=== PATIENT | male | born 1960 | race Caucasian/White ===

== ENCOUNTER 2018-02-17 02:33 | Inpatient (IN) ==
--- NOTE | 2018-02-17 03:18 | Emergency Department Note ---
ED Disposition Clinical Impression: Non-STEMI (non-ST elevated myocardial infarction), Renal insufficiency Congestive heart failure Qualifiers: Heart failure type: unspecified Heart failure chronicity: acute on chronic Qualified Code(s): I50.9 - Heart failure, unspecified Diabetes mellitus Qualifiers: Diabetes mellitus type: type 1 Diabetes mellitus complication status: with unspecified complications Qualified Code(s): E10.8 - Type 1 diabetes mellitus with unspecified complications Disposition: Admitted As Inpatient Condition on Discharge: Good - Critical Care Critical Care Time: Yes Attestation: On 02/17/18, the high probability of a clinically significant, sudden or life threatening deterioration of the following system(s) required my full and direct attention, intervention and personal management. The time I documented below is in addition to time spent performing reported procedures but includes the following listed in this critical care notation. Total Critical Care Time: 90 Vital system(s) involved:: Circulatory Failure My critical care processes included: Assessment & monitoring of V/S, Initial and Re-exams, Data Review/Interpretation, Coordinating Care, Medication Orders and management, Documentation Medical Decision Making - Medical Records Medical records reviewed: Yes: I reviewed the patient's medical records. - Brandyn Inquiry Pt receiving controlled substance: No Vital Signs: 02/17/18 02:35 02/17/18 03:07 Temperature 97.6 F Temperature Source Temporal Artery Scan Pulse Rate [Right Radial] 121 H 115 H Respiratory Rate 24 24 Blood Pressure [Right Arm] 161/110 171/100 Blood Pressure Mean [Right Arm] 127 123 Blood Pressure Source [Right Arm] Automatic Cuff Automatic Cuff Blood Pressure Position [Right Arm] Sitting Sitting 02 Sat by Pulse Oximetry 98 100 Oxygen Delivery Method Non-Rebreather Non-Rebreather Oxygen Flow Rate (LPM) 10 10 - Lab Data Lab results reviewed: Yes: I reviewed the patient's lab results. Lab Results 02/17/18 02:42: WBC 11.3 H, RBC 4.92, Hgb 15.2, Hct 47.1, MCV 95.8 H, MCH 30.8, MCHC 32.2, RDW 13.8, Plt Count 434 H, MPV 8.0, Neut % (Auto) 60.9, Lymph % (Auto ) 31.6, Mcdonough % (Auto) 5.4, Eos % (Auto) 1.3, Baso % (Auto) 0.8, Neut # (Auto) 6.9, Lymph # (Auto) 3.6, Mcdonough # (Auto) 0.6, Eos # (Auto) 0.1, Baso # (Auto) 0.1 02/17/18 02:42: PT 9.6, INR 0.89 L, APTT 25.5 02/17/18 02:42: Sodium 133 L, Potassium 4.5, Chloride 95 L, Carbon Dioxide 27, Anion Gap 15.5 H, BUN 20 H, Creatinine 1.35 H, Estimated Creat Clear 81, Estimated GFR 55 L, Est GFR ( Amer) 66, Glucose 536 H*, Total Creatine Kinase 51, CK-MB (CK-2) 1.3, CK-MB (CK-2) Rel Index 2.5, Troponin I 1.02 H 02/17/18 02:42: B-Natriuretic Peptide 952 H 02/17/18 02:42: Lactic Acid 3.3 H 02/17/18 02:42: Influenza Type A Ag Negative, Influenza Type B Ag Negative 02/17/18 02:42: Digoxin 0.42 L Result diagrams: 02/17/18 02:42 02/17/18 02:42 Orders (Tests/Meds): ED MEDICATIONS Discontinued Medications Generic Name Dose Route Start Last Admin Trade Name Lizzy PRN Reason Stop Dose Admin Enoxaparin Sodium 90 mg 02/17/18 04:44 02/17/18 04:57 Lovenox 100mg/Ml Syringe SQ 02/17/18 04:45 90 mg ONCE ONE Administration Furosemide 40 mg 02/17/18 02:55 02/17/18 02:59 Lasix 40mg/4ml Vial IV 02/17/18 02:56 40 mg ONCE ONE Administration Nitroglycerin 1 gm 02/17/18 03:18 02/17/18 03:48 Nitroglycerin 1 Inch Oint Udp TD 02/17/18 03:19 1 gm ONCE ONE Administration Ticagrelor 180 mg 02/17/18 04:44 02/17/18 04:55 Brilinta 90mg Tablet PO 02/17/18 04:45 180 mg ONCE ONE Administration ORDERS Category Date Time Status XR chest portable Stat Exams 02/17/18 02:36 Taken Respiratory Virus Panel, PCR [Upper Respiratory Panel, Lab 02/17/18 03:57 Ordered PCR] Stat Blood Culture Stat Micro 02/17/18 02:42 Received - Radiology Data #1 Image(s): Chest Image Reviewed: Yes I reviewed the patient's radiology image Preliminary Findings: Abnormal (chf) - ECG Data Tracing #1 I reviewed this ECG and interpreted as documented below: Arrhythmias present: sinus tach Ischemic changes: ST elevation Tracing #2 I reviewed this ECG and interpreted as documented below: Arrhythmias present: sinus tach Ischemic changes: ST elevation, non-specific ST-T wave changes (similiar to prev ) - Physician Consults Physician Consulted: toribio Reason -: Pt condition Additional Consult: amaya Reason -: Admission - DICK Score for Non-STEMI Age of patient: Less than 65 yrs Number of risk factors for CAD: Presence of 3 or more Prior coronary artery stenosis(seen in coronary angiography): Less than 50% ST-Segment deviation on ECG (more than 1 min): Absent Prior aspirin intake: ASA intake in the last 7 days Severe anginal chest pain: No or one episode in last 24 hours Elevated cardiac markers(CK-MB or troponin): Present Non-Stemi Risk Score: 3 Resp/SOB HPI - General Chief Complaint: Shortness of Breath/Dyspnea Stated Complaint: chest pain Time Seen by Provider: 02/17/18 03:17 Mode of Arrival: EMS Source of Information: Patient, Spouse, EMS, Medical Record Limitations: No Limitations Description of Symptoms (Recalled from ER Triage Doc. by RN): Pt reports about 2 hrs ago he started having trouble breathing and became very sweaty. Renee reports the pt. was put on oxygen at 10l, given 324 of aspirin, and obtained BG of 571. - History of Present Illness pt with congestion during the week and tonight with inc sob but no chest pain - pt with hx of cad with stents last yr and has diabetes MD Complaint: shortness of breath Onset (ago): hour(s) Severity: moderate Consistency/Duration: constant Known history of: congestive heart failure, diabetes, other (cad) Associated symptoms: cough, orthopnea, diaphoresis Treatment prior to arrival: none - Related Data Home oxygen amount: none Home Medications Medication Instructions Recorded Confirmed aspirin 81 mg tablet,delayed 81 mg PO QDAY 12/11/17 02/17/18 release atorvastatin 80 mg tablet 80 mg PO QDAY 12/11/17 02/17/18 bisoprolol fumarate 10 mg tablet 10 mg PO BID tab 12/11/17 02/17/18 dapagliflozin 10 mg tablet 10 mg PO QDAY 12/11/17 02/17/18 digoxin 125 mcg tablet 125 mcg PO QDAY 12/11/17 02/17/18 furosemide 40 mg tablet 40 mg PO QDAY 12/11/17 02/17/18 gabapentin 100 mg capsule 100 mg PO QHS 12/11/17 02/17/18 glimepiride 2 mg tablet 2 mg PO QAM 12/11/17 02/17/18 lisinopril 20 mg tablet 20 mg PO BID tab 12/11/17 02/17/18 metformin 1,000 mg tablet 1,000 mg PO BID 12/11/17 02/17/18 nitroglycerin 0.4 mg sublingual 0.4 mg SUBLINGUAL Q5M PRN 12/11/17 02/17/18 tablet prasugrel 10 mg tablet 10 mg PO QDAY 12/11/17 02/17/18 Allergies Allergy/AdvReac Type Severity Reaction Status Date / Time No Known Allergies Allergy Verified 02/17/18 02:35 [facility] History I have reviewed the patient's past medical history: Yes Medical History: Reports:: Diabetes Mellitus Type 2 (No insulin) - Social History Smoking Status: Former smoker Tobacco Type: cigarettes Alcohol Intake: never - Psychiatric History Expresses thoughts of harming self/others: None Suicide Plan Description: No Plan Comment: Father - pacemaker - still alive ROS Obtained: Yes All systems reviewed & no additional complaints - Constitutional Constitutional: Denies fever(s) - Eyes Eyes: Denies change in vision - ENT Ears, Nose, Mouth, and Throat: Denies sore throat - Cardiovascular Cardiovascular: Denies chest pain, Reports dyspnea - Respiratory Respiratory: Yes chest congestion, Yes cough, No coughing up blood - Gastrointestinal Gastrointestingal: Denies: abdominal pain - Genitourinary Male Genitourinary: Denies hematuria - Musculoskeletal Musculoskeletal: Denies joint pain - Integumentary/Breasts Skin/Breast: Denies rash - Neurologic Neurologic: Denies seizure-like activity Physical Exam - General General appearance: in no apparent distress - Head Head exam: normocephalic - Eye Eye exam: Present: PERRL, EOMI - ENT ENT exam: Present: mucous membranes dry - Neck Neck exam: Present: trachea midline - Respiratory Respiratory exam: Absent: respiratory distress (bilat rales ) - Cardiovascular Cardiovascular exam: Present: regular rate, systolic murmur, +S3, +S4 - Abdominal Exam Abdominal exam: Present: soft - Extremities Exam Extremities exam: Absent: calf tenderness - Neurological Exam Neurological exam: Present: alert, oriented X3, CN II-XII intact - Skin Skin exam: Absent: rash
[2018-02-17 03:22] LABS: Basophils # 0.1 K/mm3 (0-0.2); Basophils % 0.8 % (0.1-2.0); Eosinophils # 0.1 K/mm3 (0.0-0.4); Eosinophils % 1.3 % (0.1-12.0); Hematocrit 47.1 % (42.0-52.0); Hemoglobin 15.2 g/dL (14.1-18.0); Lymphocytes # 3.6 K/mm3 (0.7-4.5); Lymphocytes % 31.6 K/mm3 (10-50); Mean Corpuscular HGB Conc 32.2 g/dL (31.8-35.4); Mean Corpuscular Hemoglobin 30.8 pg (27.0-31.2); Mean Corpuscular Volume 95.8 fl (80-94); Monocytes # 0.6 K/mm3 (0.1-1.0); Monocytes % 5.4 % (1.7-9.3); Neutrophils # 6.9 K/mm3 (1.8-7.8); Neutrophils % 60.9 % (37.0-80.0); Platelet Count 434 K/mm3 (142-424); Red Blood Count 4.92 M/mm3 (4.60-6.20); Red Cell Distribution Width 13.8 % (11.5-17.5); White Blood Count 11.3 K/mm3 (4.8-10.8)
[2018-02-17 03:25] LABS: Activated Partial Thrombo Time 25.5 seconds (23.6-34.0); INR 0.89 (0.9-1.1); Prothrombin Time 9.6 seconds (9.4-11.8)
[2018-02-17 04:04] LABS: Anion Gap 15.5 mEq/L (5-15); Potassium 4.5 mmoL/L (3.5-5.1)
[2018-02-17 05:45] LABS: Coronavirus 229E Not Detected (NotDetected); Coronavirus NL63 Not Detected (NotDetected); Coronavirus OC43 Not Detected (NotDetected); Coronovirus HKU1,PCR Not Detected (NotDetected)
[2018-02-17 07:06] LABS: Basophils # 0.1 K/mm3 (0-0.2); Basophils % 0.4 % (0.1-2.0); Hematocrit 42.9 % (42.0-52.0); Mean Platelet Volume 7.7 fl (7.4-10.4); Red Cell Distribution Width 13.8 % (11.5-17.5)
[2018-02-17 07:12] LABS: Anion Gap 13.5 mEq/L (5-15); Potassium 4.5 mmoL/L (3.5-5.1)
[2018-02-17 07:33] LABS: Eosinophils % 0.1 % (0.1-12.0); Lymphocytes # 1.6 K/mm3 (0.7-4.5); Lymphocytes % 10.1 K/mm3 (10-50); Mean Corpuscular HGB Conc 31.6 g/dL (31.8-35.4); Monocytes # 0.7 K/mm3 (0.1-1.0); Monocytes % 4.1 % (1.7-9.3); Neutrophils # 13.9 K/mm3 (1.8-7.8); Neutrophils % 85.3 % (37.0-80.0); Platelet Count 363 K/mm3 (142-424); Red Blood Count 4.52 M/mm3 (4.60-6.20); White Blood Count 16.3 K/mm3 (4.8-10.8)
[2018-02-17 07:34] LABS: Hemoglobin 13.6 g/dL (14.1-18.0)
--- NOTE | 2018-02-17 08:51 | History & Physical Report ---
*Admission Date: 02/17/18 *Chief complaint: Shortness of air *History of present illness: 57-year-old white male with known cardiovascular disease, status post stenting 1 year ago, severe diabetes which is poorly controlled, hyperlipidemia, who after returning from a vacation in [place] last night at his home awoke around 1030 with sudden shortness of air and coughing. He was able to cough up some mucus but this did not help his shortness of air which progressively became worse. He came to the emergency department where initial enzyme testing showed troponin elevation, and exam was consistent with some fluid overload and also noted to have high BNP levels. He did not respond significantly nitroglycerin, but after Lasix and oxygen were given felt much better. Had a good diuresis and his shortness of air essentially resolved. However, second set of troponin enzymes were also positive and patient was admitted for non- STEMI. [facility] History I have reviewed the patient's past medical history: Yes Medical History: Reports:: Congestive Heart Failure, Diabetes Mellitus Type 2 ( No insulin), Hyperlipidemia, Hypertension, Myocardial Infarction Denies:: Cancer, Diabetes Mellitus Type 1, MRSA Other Surgeries: Yes: Cardiac Catheterization, Coronary Stent, Hernia Repair Amputation: No - *Social History Educational Level: Completed High School Smoking Status: Former smoker Tobacco Type: cigarettes Alcohol Intake: never Occupational Status: employed Housing: house Household Members: spouse - Psychiatric History Expresses thoughts of harming self/others: None Suicide Plan Description: No Plan *Family Hx:: Coronary Artery Disease, Diabetes, Heart Attack, Hyperlipidemia, Hypertension Review of Systems - Review of Systems Review of systems:: unable to obtain, other, pertinent systems reviewed and negative unless documented below - *Neurologic Denies seizure-like activity Meds Home Medications Medication Instructions Recorded Confirmed Type aspirin 81 mg tablet,delayed 81 mg PO QDAY 12/11/17 02/17/18 History release atorvastatin 80 mg tablet 80 mg PO QDAY 12/11/17 02/17/18 History bisoprolol fumarate 10 mg tablet 10 mg PO BID tab 12/11/17 02/17/18 History dapagliflozin 10 mg tablet 10 mg PO QDAY 12/11/17 02/17/18 History digoxin 125 mcg tablet 125 mcg PO QDAY 12/11/17 02/17/18 History furosemide 40 mg tablet 40 mg PO QDAY 12/11/17 02/17/18 History gabapentin 100 mg capsule 100 mg PO QHS 12/11/17 02/17/18 History glimepiride 2 mg tablet 2 mg PO QAM 12/11/17 02/17/18 History lisinopril 20 mg tablet 20 mg PO BID tab 12/11/17 02/17/18 History metformin 1,000 mg tablet 1,000 mg PO BID 12/11/17 02/17/18 History nitroglycerin 0.4 mg sublingual 0.4 mg SUBLINGUAL Q5M PRN 12/11/17 02/17/18 History tablet prasugrel 10 mg tablet 10 mg PO QDAY 12/11/17 02/17/18 History Allergies Allergy/AdvReac Type Severity Reaction Status Date / Time No Known Allergies Allergy Verified 02/17/18 02:35 Exam Vital signs and Labs for Last 24 Hours: Temp Pulse Resp BP Pulse Ox 97.9 F 84 16 121/61 96 02/17/18 07:54 02/17/18 07:54 02/17/18 07:54 02/17/18 07:54 02/17/18 07:54 Laboratory Results - last 24 hr 02/17/18 06:14: POC Glucose 580 H* 02/17/18 06:40: WBC 16.3 H D, RBC 4.52 L, Hgb 13.6 L D, Hct 42.9, MCV 95.0 H, MCH 30.0, MCHC 31.6 L, RDW 13.8, Plt Count 363, MPV 7.7, Neut % (Auto) 85.3 H, Lymph % (Auto) 10.1, Saline % (Auto) 4.1, Eos % (Auto) 0.1, Baso % (Auto) 0.4, Neut # (Auto) 13.9 H, Lymph # (Auto) 1.6, Saline # (Auto) 0.7, Eos # (Auto) 0.0, Baso # (Auto) 0.1 02/17/18 06:40: Sodium 131 L, Potassium 4.5, Chloride 96 L, Carbon Dioxide 26, Anion Gap 13.5, BUN 23 H, Creatinine 1.29, Estimated Creat Clear 73, Estimated GFR 58 L, Est GFR ( Amer) 70, Glucose 594 H* 02/17/18 06:40: Random Glucose 594 H* 04/07/18 06:42: Lactic Acid Fup @ 4Hr 1.6 I & O for Last 24 hours: Intake & Output 02/14/18 02/15/18 02/16/18 02/17/18 11:59 11:59 11:59 11:59 Weight 177 lb Narrative: Patient is awake, pleasant. Oriented 3. Long, joy monteiro as previously noted. Heart rate regular, lungs have crackles in both bases. Abdomen soft and nontender, no perfusion deficits, no edema peripherally. H&P: Result - Labs Labs: Short CBC 02/17/18 Range/Units 06:40 WBC 16.3 H D (4.8-10.8) K/mm3 Hgb 13.6 L D (14.1-18.0) g/dL Hct 42.9 (42.0-52.0) % Plt Count 363 (142-424) K/mm3 BMP 02/17/18 06:40 Sodium 131 L Potassium 4.5 Chloride 96 L Carbon Dioxide 26 BUN 23 H Creatinine 1.29 Glucose 594 H* Assessment and Plan (1) Congestive heart failure Current visit: Yes Status: Acute Qualifiers: Heart failure type: unspecified Heart failure chronicity: acute on chronic Qualified Code(s): I50.9 - Heart failure, unspecified Category: Medical Code(s): I50.9 - Heart failure, unspecified (2) Non-STEMI (non-ST elevated myocardial infarction) Current visit: Yes Status: Acute Category: Medical Code(s): I21.4 - Non- ST elevation (NSTEMI) myocardial infarction (3) Renal insufficiency Current visit: Yes Status: Acute Category: Medical Code(s): N28.9 - Disorder of kidney and ureter, unspecified (4) Diabetes mellitus Current visit: Yes Status: Chronic Qualifiers: Diabetes mellitus type: type 1 Diabetes mellitus complication status: with unspecified complications Qualified Code(s): E10.8 - Type 1 diabetes mellitus with unspecified complications Category: Medical Code(s): E11.9 - Type 2 diabetes mellitus without complications (5) Cardiomyopathy Current visit: No Status: Chronic Qualifiers: Category: Medical Code(s): I42.9 - Cardiomyopathy, unspecified (6) Coronary arteriosclerosis Current visit: No Status: Chronic Category: Medical Code(s): I25.10 - Atherosclerotic heart disease of [place] coronary artery without angina pectoris (7) Hyperlipidemia Current visit: No Status: Chronic Qualifiers: Category: Medical Code(s): E78.5 - Hyperlipidemia, unspecified (8) Hypertensive heart disease Current visit: No Status: Chronic Category: Medical Code(s): I11.9 - Hypertensive heart disease without heart failure - Assessment and plan all Dx Assessment and Plan for all problems:: Agree with admission, IV Lasix continues. Sliding scale insulin. Medical management for now. Patient already feels better with diuresis. Echocardiogram, cardiology consultation.
[2018-02-17 10:02] LABS: Lymphocytes % 13 % (10-50); Neutrophils % 85 % (42-76); Total Cells Counted 100
[2018-02-17 10:03] LABS: RBC Morphology Normal
--- NOTE | 2018-02-17 14:19 | Pharmacy Consult Notes ---
[facility] Pharmacy VTE Monitoring - Patient Demographics Admission date: 02/17/18 Report Date: 02/17/18 Time: 14:19 Allergies/Adverse Reactions: Patient Allergies No Known Allergies Allergy (Verified 02/17/18 02:35) Height: 1.7 m Weight: 80.286 kg Patient Problems: Current Active Problems Non-STEMI (non-ST elevated myocardial infarction) (Acute) Congestive heart failure (Acute) Renal insufficiency (Acute) Diabetes mellitus (Chronic) - VTE Risk Labs: VTE Related Lab Results Hgb 13.6 g/dL (14.1-18.0) L D 02/17/18 06:40 Hct 42.9 % (42.0-52.0) 02/17/18 06:40 Plt Count 363 K/mm3 (142-424) 02/17/18 06:40 PT 9.6 seconds (9.4-11.8) 02/17/18 02:42 INR 0.89 (0.9-1.1) L 02/17/18 02:42 APTT 25.5 seconds (23.6-34.0) 02/17/18 02:42 BUN 23 mg/dL (7-18) H 02/17/18 06:40 Creatinine 1.29 mg/dL (0.70-1.30) 02/17/18 06:40 Estimated Creat Clear 73 mL/min (0-300) 02/17/18 06:40 VTE Score: 6 VTE Risk Level: Moderate Risk - Prophylaxis VTE Prophylaxis Ordered?: Yes Types of VTE Prophylaxis: TEDS Knee High Location of Applied Device: Bilateral Lower Extremeties
--- NOTE | 2018-02-18 09:09 | Discharge Summary ---
General - General Admission date: 02/17/18 Discharge date: 02/18/18 HPI HPI: 57-year-old white male with known cardiovascular disease, status post stenting 1 year ago, severe diabetes which is poorly controlled, hyperlipidemia, who after returning from a vacation in [place] last night at his home awoke around 1030 with sudden shortness of air and coughing. He was able to cough up some mucus but this did not help his shortness of air which progressively became worse. He came to the emergency department where initial enzyme testing showed troponin elevation, and exam was consistent with some fluid overload and also noted to have high BNP levels. He did not respond significantly nitroglycerin, but after Lasix and oxygen were given felt much better. Had a good diuresis and his shortness of air essentially resolved. However, second set of troponin enzymes were also positive and patient was admitted for non- STEMI. Hospital Course Hospital Course: Patient was admitted, troponin elevation was considerable and increased to 20. Cardiology evaluated patient and took him to the [facility] yesterday, results are noted in this document below. ANGIOGRAPHIC RESULTS: 1. The left main artery has an ostial 20% stenosis which appears to be more of an anatomical bend 2. The left anterior descending artery initially is ostially occluded however after the procedure the LAD is widely patent with DICK-3 flow. The LAD wraps the apex and is a large vessel. In the mid LAD are 30% stenoses. The first diagonal artery has a distal 40% stenosis. 3. The circumflex artery is a nondominant vessel which has proximal 30% mid vessel 30 and 40% stenoses in the large obtuse marginal artery. 4. The right coronary artery is a dominant vessel and has 30% mid and distal stenoses 5. The GUERRIER ventriculogram reveals severe left ventricular dilatation with akinetic anterior apical wall estimated ejection fraction 15-20% 6. The left ventricular end-diastolic pressure 20 mmHg IMPRESSION: 1. Acute anterior myocardial infarction with acute systolic congestive heart failure 2. Successful stenting of the ostial proximal mid LAD with successful bifurcation into a large first diagonal artery. 100% occlusion reduced to 0% with 3 drug-eluting stents 3. Severe LV dysfunction 4. Normal LVEDP given degree of LV dysfunction PLAN: 1. Standard therapy for acute systolic heart failure including lillian inhibitors. Use carvedilol judiciously and uptitrate slowly. Patient should be maximized on lisinopril prior to advancing carvedilol 2. LDL less than 55 to be achieved with high intensity stent 3. Lifevest patient is willing to wear 4. Cardiac rehabilitation 5. Avoidance of tobacco products 6. It is important we once again stress medical compliance with patient who unfortunately has a long history of medicinal noncompliance Patient did well and felt much better. This morning the patient is feeling good , no chest pain or shortness of air. Oxygenation is excellent on room air. Patient has developed a mild cyst in his perineum with some redness and infectious type symptoms otherwise. I had a long discussion with patient about ongoing therapy. Patient is completely unwilling to wear a LifeVest. He is unconvinced of its efficacy and is also deeply troubled about the cost. He and his both say that it will not wear it or take at home if prescribed. He does state that he has been compliant with all of his medications, and that his glucose control has improved with the recent injectable GLP-1 antagonist. Will be to discharge home today. He has his antiplatelet agent, aspirin, lisinopril and beta-blockers at home. He also has statin at home. We will do antibiotics for the infected cyst as noted. Close follow-up in my office on Monday. Objective Vital signs: Temp Pulse Resp BP Pulse Ox 97.9 F 78 20 124/71 100 02/18/18 04:00 02/18/18 06:00 02/18/18 04:00 02/18/18 06:00 02/18/18 06:00 Narrative: Patient is alert, awake, oriented 3, comfortable without chest pain, oxygen 95 % on room air. Lungs are clear, heart rate regular. Abdomen soft. Red cyst with minimal drainage noted around the perineum. No evidence of streaking. No edema noted. Results Labs on day of discharge: Labs from last 24 hours 02/18/18 02/17/18 02/17/18 06:00 20:13 12:46 Total Counted Neutrophils % (Manual) Lymphocytes % (Manual) Atypical Lymphs % Platelet Estimate RBC Morphology Activated Clotting Time > 400 H* POC Glucose 164 H 226 H Troponin I 02/17/18 02/17/18 10:07 06:40 Total Counted 100 Neutrophils % (Manual) 85 H Lymphocytes % (Manual) 13 Atypical Lymphs % 2.0 Platelet Estimate Normal RBC Morphology Normal Activated Clotting Time POC Glucose Troponin I 20.96 H DS: Diagnosis - Discharge Diagnosis (1) Congestive heart failure Status: Acute (2) Non-STEMI (non-ST elevated myocardial infarction) Status: Acute (3) Renal insufficiency Status: Acute (4) Diabetes mellitus Status: Chronic (5) Cardiomyopathy Status: Chronic (6) Coronary arteriosclerosis Status: Chronic (7) Hyperlipidemia Status: Chronic (8) Hypertensive heart disease Status: Chronic (9) Cellulitis and abscess of buttock Status: Acute Discharge Plan - Patient Discharge Instructions ACTIVITY: Continue current activity, No heavy lifting DIET: continue same diet, diabetic diet - Follow up Plan Follow up with: Basil Sebastian MD [Staff Physician] - 02/23/18 9:00 am Disposition: Home, Self-Residential Medications: Home Medications Medication Instructions Recorded Confirmed Type aspirin 81 mg tablet,delayed 81 mg PO DAILY 12/11/17 02/17/18 History release atorvastatin 80 mg tablet 80 mg PO HS 12/11/17 02/17/18 History bisoprolol fumarate 10 mg tablet 10 mg PO BID tab 12/11/17 02/17/18 History dapagliflozin 10 mg tablet 10 mg PO DAILY 12/11/17 02/17/18 History digoxin 125 mcg tablet 125 mcg PO DAILY 12/11/17 02/17/18 History furosemide 40 mg tablet 40 mg PO DAILY 12/11/17 02/17/18 History gabapentin 100 mg capsule 100 mg PO QHS 12/11/17 02/17/18 History glimepiride 2 mg tablet 2 mg PO DAILY 12/11/17 02/17/18 History lisinopril 20 mg tablet 20 mg PO BID tab 12/11/17 02/17/18 History metformin 1,000 mg tablet 1,000 mg PO BID 12/11/17 02/17/18 History nitroglycerin 0.4 mg sublingual 0.4 mg SUBLINGUAL Q5M PRN 12/11/17 02/17/18 History tablet prasugrel 10 mg tablet 10 mg PO DAILY 12/11/17 02/17/18 History Prescriptions/Medication Reconciliation: New Cefdinir [Omnicef 300mg Capsule] 300 mg PO BID #20 cap Liraglutide [Victoza 2-Pk] 1.2 mg SQ DAILY #1 pen.injctr Mupirocin [Bactroban 2% Ointment 22gm tube] 1 applicatio TP TID #2 tube Continue aspirin 81 mg tablet,delayed release 81 mg PO DAILY atorvastatin 80 mg tablet 80 mg PO HS bisoprolol fumarate 10 mg tablet 10 mg PO BID tab digoxin 125 mcg tablet 125 mcg PO DAILY prasugrel 10 mg tablet 10 mg PO DAILY furosemide 40 mg tablet 40 mg PO DAILY gabapentin 100 mg capsule 100 mg PO QHS glimepiride 2 mg tablet 2 mg PO DAILY lisinopril 20 mg tablet 20 mg PO BID tab metformin 1,000 mg tablet 1,000 mg PO BID nitroglycerin 0.4 mg sublingual tablet 0.4 mg SUBLINGUAL Q5M PRN PRN Reason: Chest Pain dapagliflozin 10 mg tablet 10 mg PO DAILY
[2018-02-18 10:01] VITALS: BP 107/56
== END 2018-02-18 09:55 | disposition home or self-care (01) ==
LOC: ER 02:33 → 2ND 05:01
PROVIDERS: ADMIT Internal Medicine Adolescent Medicine; ATTEND Internal Medicine Adolescent Medicine

== ENCOUNTER → 2018-02-21 10:53 | Outpatient (CLI) | payer BC, SELFPAY ==
--- NOTE | 2018-02-21 10:55 | CA_ITS ---
PROCEDURE: Limited echocardiogram was performed. INDICATIONS FOR THE TEST: Chest pain COPD Heart Murmur Tobacco Smoking Palpitations Fatigue Syncope Edema Hypertension+Diabetes Mellitus+ Rheumatic Fever SOB+AGUERO Obesity Hyperlipidemia+ Family History HD Additional History STENTS 02/17/18 PATIENT INFORMATION HEIGHT: 67 WEIGHT:177 GENDER: Male B/P:121/61 2-D/M-MODE INTERPRETATION: 2-D MEASUREMENTS OBSERVED VALUES IN CMS Right Ventricular Dimension (RVDd) 2.9 Interventricular Septum (Thickness)(IVsd) 1.2 Left Ventricular Internal Dimensions(LVIDd) 6.1 Left Ventricular Posterior Wall (Thickness)(LVPWd) 3.1 Aortic Root Aortic Cusp Separation Left Atrial Dimensions (LAD) 2D 1. Left atrium is mildly enlarged, left ventricle is mildly dilated, there is mild concentric left ventricular hypertrophy, there is severely reduced left ventricular systolic function, visually estimated ejection fraction approximately 25%, there is marked hypokinesis involving mid to distal septum, anterior, anteroapical, apex and inferoapical wall. 2. The right atrium and right ventricle are normal size and contractility. 3. The aortic valve is minimally thickened and fibrosed. 4. The mitral and tricuspid valve is structurally normal. 5. The pulmonic valve is poorly visualized. 6. No significant pericardial effusion noted. DOPPLER INTERROGATION: No Doppler performed. CONCLUSION: Line 1. Mildly enlarged left atrium, mildly dilated left ventricle, mild concentric left ventricular hypertrophy, visually estimated ejection fraction of 25% with multiple segmental wall motion abnormality described above. 2. No significant pericardial effusion noted.
== END ==
PROVIDERS: PCP Internal Medicine Adolescent Medicine; Visit Provider Physician Assistant
DX: R94.31 Abnormal electrocardiogram [ECG] [EKG] (principal); I25.10 Atherosclerotic heart disease of native coronary artery without angina pectoris; I42.9 Cardiomyopathy, unspecified; I11.0 Hypertensive heart disease with heart failure; E78.4 Other hyperlipidemia; E10.8 Type 1 diabetes mellitus with unspecified complications
CPT/HCPCS: 93308

== ENCOUNTER 2018-03-01 12:32 | Outpatient (RCR) | payer BC, SELFPAY | END 2018-03-01 12:33 | disposition home or self-care (01) | LOC: PT 12:32 | PROVIDERS: PCP Internal Medicine Adolescent Medicine; Visit Provider Internal Medicine | DX: Z95.5 Presence of coronary angioplasty implant and graft (principal) | CPT/HCPCS: 93798 ==

== ENCOUNTER → 2018-04-06 13:13 | Outpatient (CLI) | payer BC, SELFPAY ==
--- NOTE | 2018-04-06 13:14 | US_ITS ---
US Arterial Ankle Brachial index.. Bilateral Lower leg physiologic arterial evaluation HISTORY: ITS.REASON: Claudication both legs. Rest pain both legs.. Diabetic with peripheral vascular disease. Previous angioplasty. Previous smoker. CAD hyperlipidemia.. Prior [place]. Hypertension 6 cardiac stents. TECHNIQUE: Segmental pressures obtained of both right and left leg. These are compared to brachial blood pressure to yield index at each level sampled including summary NNEKA. The data sheets from the procedure are available in PACS FINDINGS Rest study only performed today No prior studies available for comparison. Blood pressures reported are in millimeters mercury. ======== RIGHT LEG NNEKA = 0.2...Reflecting Very Severe Flow Resection. (Technologist noted Patient appt with Dr. De La Cruz april 10) RIGHT LEG TBI = Unattainable Brachial BP: 112 Thigh BP: BP 38 with index 0.34 Calf BP: BP 36 with index 0.32 Ankle PT: BP 27 with index 0.24 Ankle DP : BP 32 with index 0.29 Digit = unobtainable BP 0 index 0 Right leg Waveforms Diminished. Right DP Pulses Very Diminished ========= LEFT LEG NNEKA = 0.8. LEFT LEG TBI = 0.6 Brachial BPD: 108 Thigh BP: BP 107 with index 0.96 Calf BP: BP 103 with index 0.92 Ankle PT:BP 93 with index 0.83 Ankle DP: BP 85 with index 0.76 Digit = BP 65 with index 0.58 Left leg pulses and waveforms normal IMPRESSION:...... 1. RIGHT LEG NNEKA = 0.2 RIGHT LEG TBI = Unattainable Markedly diminished waveforms right leg. Right DP pulse very diminished 2. LEFT LEG NNEKA = 0.8 LEFT LEG TBI = 0.6 Waveforms and pulses normal at left leg
== END ==
PROVIDERS: PCP Internal Medicine Adolescent Medicine; Visit Provider Internal Medicine
DX: I70.213 Atherosclerosis of native arteries of extremities with intermittent claudication, bilateral legs (principal); I73.9 Peripheral vascular disease, unspecified
CPT/HCPCS: 93922

== ENCOUNTER → 2018-11-22 12:49 | Outpatient (CLI) | payer BC, SELFPAY ==
--- NOTE | 2018-11-22 12:52 | MR_ITS ---
MR head/brain wo con HISTORY: Headache, and balance, blurred vision ITS.REASON: BALANCE PROBLEMS, NEUROPATHY ORDERING PHYSICIAN: Basil Sebastian MD PATIENT AGE: 58 years Comparison: None TECHNIQUE: Standard multiplanar multiecho sequences are performed without contrast. FINDINGS: No midline shift, mass effect, intracranial hemorrhage, or hydrocephalus is evident. There is mild generalized atrophy with a few scattered periventricular and subcortical T2 white matter hyperintensities consistent with ischemic gliotic change from microvascular disease. Old small lacunar infarction of the right putamen noted. No acute infarction apparent. There is increased T2 signal involving the right aspect of the capo consistent with an area of ischemic analysis. This does not demonstrate restricted diffusion. The cerebellopontine angles, cerebellum, and brainstem are unremarkable. No mastoid effusion or sinus air-fluid level. The pituitary, optic chiasm, corpus callosum, and craniocervical junction have an unremarkable appearance. IMPRESSION: 1. No acute intracranial finding. 2. Ischemic gliotic white matter changes with old small lacunar infarction on the right and suspected ischemic gliotic change in the right aspect of the capo
== END ==
PROVIDERS: PCP Internal Medicine Adolescent Medicine; Visit Provider Internal Medicine Adolescent Medicine
DX: R26.89 Other abnormalities of gait and mobility (principal); R29.6 Repeated falls; G62.9 Polyneuropathy, unspecified
CPT/HCPCS: 70551

== ENCOUNTER → 2018-11-29 08:51 | Outpatient (CLI) | payer BC, SELFPAY | PROVIDERS: PCP Internal Medicine Adolescent Medicine; Visit Provider Internal Medicine Adolescent Medicine | DX: Z71.3 Dietary counseling and surveillance (principal); E11.9 Type 2 diabetes mellitus without complications | CPT/HCPCS: 97802 ==

== ENCOUNTER → 2018-12-17 09:22 | Outpatient (CLI) | payer BC, SELFPAY ==
--- NOTE | 2018-12-17 09:23 | CI_ITS ---
Cerebrovascular Exam Indications: CVA 436. 785.9 Bruit. 780.4 Dizziness and giddiness. IMPRESSIONS 1. The bilateral vertebral arteries are patent with normal antegrade flow. 2. Study suggests less than 20% stenosis involving the right internal carotid artery. 3. Study suggests 70-99% stenosis involving the left internal carotid artery. History: Risk factors: Current tobacco use. Former smoker - years since quittinyr. Hypertension. Diabetes mellitus. Carotid duplex study. Complete study and Doppler flow study including spectral analysis, color and joy scale imaging. Height: Height: 170.2cm. Height: 67in. Weight: Weight: 74.8kg. Weight: 164.7lb. Body mass index: BMI: 25.8kg/m^2. Body surface area: BSA: 1.89m^2. CRITICAL FINDINGS - [facility] - 09:55 am - Lt ICA 70-99% stenosis Tables: Arterial flow: + +--------+--------+ Location V sys V ed + +--------+--------+ Right CCA - proximal 107cm/s 9.4cm/s + +--------+--------+ Right CCA - distal 89.6cm/s 13.4cm/s + +--------+--------+ Right ECA 248cm/s 21.4cm/s + +--------+--------+ Right ICA - proximal 88.8cm/s 13.4cm/s + +--------+--------+ Right ICA - mid 66.4cm/s 21.4cm/s + +--------+--------+ Right ICA - distal 79cm/s 22.7cm/s + +--------+--------+ Right vertebral 48.2cm/s 13.3cm/s + +--------+--------+ Left CCA - proximal 48.1cm/s 9.3cm/s + +--------+--------+ Left CCA - distal 37.3cm/s 9.3cm/s + +--------+--------+ Left ECA 243cm/s 24.4cm/s + +--------+--------+ Left ICA - proximal 635cm/s 267cm/s + +--------+--------+ Left ICA - mid 186cm/s 56.7cm/s + +--------+--------+ Left ICA - distal 61.5cm/s 27.2cm/s + +--------+--------+ Left vertebral 52.9cm/s 12.1cm/s + +--------+--------+ Velocity ratios: + + + + + + Right, V sys Right, V ed Left, V sys Left, V ed + + + + + + Max ICA/dist CCA 0.99 1.69 17.02 28.62 + + + + + + (Report amended ) Electronically signed by: Ke Irwin [id number]
== END ==
PROVIDERS: PCP Internal Medicine Adolescent Medicine; Visit Provider Internal Medicine
DX: I25.10 Atherosclerotic heart disease of native coronary artery without angina pectoris (principal); I73.9 Peripheral vascular disease, unspecified; R09.89 Other specified symptoms and signs involving the circulatory and respiratory systems; W19.XXXS Unspecified fall, sequela; Z86.73 Personal history of transient ischemic attack (TIA), and cerebral infarction without residual deficits
CPT/HCPCS: 93880

== ENCOUNTER 2018-12-21 22:49 | Inpatient (IN) ==
--- NOTE | 2018-12-21 23:01 | Emergency Department Note ---
ED Disposition Clinical Impression: Non-STEMI (non-ST elevated myocardial infarction), Renal insufficiency Diabetes mellitus Qualifiers: Diabetes mellitus type: type 2 Diabetes mellitus fci insulin use: without registration specialist use Diabetes mellitus complication status: with unspecified complications Qualified Code(s): E11.8 - Type 2 diabetes mellitus with unspecified complications Disposition: Admitted as Observation Condition on Discharge: Good - Critical Care Critical Care Time: No Attestation: On 12/21/18, the high probability of a clinically significant, sudden or life threatening deterioration of the following system(s) required my full and direct attention, intervention and personal management. The time I documented below is in addition to time spent performing reported procedures but includes the following listed in this critical care notation. Medical Decision Making - Medical Records Medical records reviewed: Yes: I reviewed the patient's medical records. - Brandyn Inquiry Pt receiving controlled substance: No Vital Signs: 12/21/18 22:49 12/21/18 23:44 12/22/18 00:23 Temperature 97.8 F Temperature Source Oral Pulse Rate [Right Brachial] 110 H 94 H 99 H Respiratory Rate 20 14 18 Blood Pressure [Right Arm] 158/89 H 116/71 146/83 H Blood Pressure Mean [Right Arm] 112 86 104 Blood Pressure Source [Right Arm] Automatic Cuff Automatic Cuff Automatic Cuff Blood Pressure Position [Right Arm] Sitting Sitting Sitting 02 Sat by Pulse Oximetry 90 L 98 99 Oxygen Delivery Method Room Air Room Air Nasal Cannula Oxygen Flow Rate (LPM) 2 - Lab Data Lab results reviewed: Yes: I reviewed the patient's lab results. Lab Results 12/21/18 22:53: Troponin I 0.92 H 12/21/18 22:53: WBC 9.1, RBC 4.69, Hgb 14.0 L, Hct 43.7, MCV 93.1, MCH 29.8, MCHC 32.0, RDW 13.8, Plt Count 278, MPV 7.7, Neut % (Auto) 64.5, Lymph % (Auto) 27.1, [place] % (Auto) 5.7, Eos % (Auto) 2.1, Baso % (Auto) 0.7, Neut # (Auto) 5.9, Lymph # (Auto) 2.5, [place] # (Auto) 0.5, Eos # (Auto) 0.2, Baso # (Auto) 0.1 12/21/18 22:53: Sodium 131 L, Potassium 4.9, Chloride 96 L, Carbon Dioxide 25, Anion Gap 14.9, BUN 25 H, Creatinine 1.19, Estimated Creat Clear 73, Estimated GFR 63, Est GFR ( Amer) 77, Glucose 521 H*, Calcium 9.8 Result diagrams: 12/21/18 22:53 12/21/18 22:53 Orders (Tests/Meds): ED MEDICATIONS Generic Name Dose Route Start Last Admin Trade Name Freq PRN Reason Stop Dose Admin Sodium Chloride 10 ml 12/21/18 22:59 Saline Flush 10ml Syringe IV 01/20/19 22:58 NEEDED PRN Maintain IV Site Discontinued Medications Generic Name Dose Route Start Last Admin Trade Name Freq PRN Reason Stop Dose Admin Nitroglycerin 0.4 mg 12/21/18 23:00 12/21/18 22:56 Nitrostat 0.4mg Sl Tablet SL 12/21/18 23:01 0.4 mg ONCE ONE Administration ORDERS Category Date Time Status XR chest 2V Stat Exams 12/21/18 22:59 Taken ECG Request by /Nse Stat Y 12/21/18 22:59 Ordered - Radiology Data #1 Image(s): Clavicle Image Reviewed: Yes I reviewed the patient's radiology image Preliminary Findings: Abnormal (chronic changes ) - ECG Data Tracing #1 Normal Sinus Rhythm: Yes Ischemic changes: non-specific ST-T wave changes ECG compared to prior tracings: there are no significant changes Tracing #2 Normal Sinus Rhythm: Yes Ischemic changes: non-specific ST-T wave changes ECG compared to prior tracings: there are no significant changes - Physician Consults Physician Consulted: cisco Reason -: Admission Additional Consult: toribio Reason -: Pt condition Chest Pain HPI - General Chief Complaint: Chest Pain Stated Complaint: chest pain Time Seen by Provider: 12/21/18 23:00 Mode of Arrival: Family Vehicle Source of Information: Patient, Spouse, Medical Record Limitations: No Limitations Description of Symptoms (Recalled from ER Triage Doc. by RN): Pt states he is having CP on his left side with SOA, cough and congestion , that started about 30 mins ago. He states this is like his previous ID - History of Present Illness HPI narrative: acute onset of lt chest pain similiar to prev chest pain assoc with cad - he has sob but no fever or rash - took ntg last pm complaint: chest pain indicative of cardiac Onset (ago): hour(s) Duration: now resolved Activity at onset: during rest Pain location: left chest Severity: similar to previous episodes Quality: sharp Relieving factors: nitroglycerin Risk Factors for CAD: Hypertension, Diabetes Treatments prior to or on arrival for Cardiac Chest Pain: none - NICOLAS Score for Non-Stemi Age of Patient: 50-59 years old Heart Rate: 110-149 bpm Systolic Blood Pressure: 140-159 mmHg Serum Creatinine: 0.80-1.19 mg/dl CHF [place] Class: I-No CHF Other Risk Factors: Elevated Cardiac Enzymes or Biomarkers Non-Stemi Risk Score: 110 - Related Data Prior Cardiac Testing/Procedures: Stenting Home Medications Medication Instructions Recorded Confirmed atorvastatin 80 mg tablet 80 mg PO HS 12/11/17 12/21/18 dapagliflozin 10 mg tablet 10 mg PO DAILY 12/11/17 12/21/18 digoxin 125 mcg tablet 125 mcg PO DAILY 12/11/17 12/21/18 glimepiride 2 mg tablet 2 mg PO DAILY 12/11/17 12/21/18 metformin 1,000 mg tablet 1,000 mg PO BID 12/11/17 12/21/18 prasugrel 10 mg tablet 10 mg PO DAILY 12/11/17 12/21/18 lisinopril 20 mg tablet 10 mg PO DAILY tab 04/10/18 12/21/18 bisoprolol fumarate 10 mg tablet 5 mg PO BID tab 07/24/18 12/21/18 furosemide 40 mg tablet 40 mg PO DAILY PRN 07/24/18 12/21/18 gabapentin 100 mg capsule 200 mg PO QHS cap 07/24/18 12/21/18 aspirin 325 mg tablet 325 mg PO DAILY 10/23/18 12/21/18 dulaglutide 1.5 mg/0.5 mL 1.5 mg SQ QWEEK 12/04/18 12/21/18 subcutaneous pen injector Previous Rx's Medication Instructions Recorded nitroglycerin 0.4 mg sublingual 0.4 mg SUBLINGUAL Q5M PRN #30 tab 10/23/18 tablet Allergies Allergy/AdvReac Type Severity Reaction Status Date / Time No Known Allergies Allergy Verified 12/21/18 22:57 [facility] History - Hepatitis A Screen Drug use history?: No High risk sexual behaviors?: No History of sexually transmitted infection?: No Currently employed?: No Childcare worker?: No Do you have indoor plumbing?: Yes Do you have electricity?: Yes Attestation statement:: This patient has been screened for Hepatitis A risk factors. I have reviewed the patient's past medical history: Yes Medical History: Reports:: Congestive Heart Failure, Diabetes Mellitus Type 2, Hyperlipidemia, Hypertension, Myocardial Infarction Denies:: Cancer, Diabetes Mellitus Type 1, Internal Pacemaker, MRSA, Seizures Other Surgeries: Yes: Cardiac Catheterization, Coronary Stent, Hernia Repair. No: Pacemaker Amputation: No Fractures: No - Social History Smoking Status: Unknown if ever smoked Tobacco Type: cigarettes #Yrs smoked (if former smoker): 40 Alcohol Intake: never Alcohol Intake Frequency:: other Substance Use Type: denies use Occupational Status: employed Housing: house Household Members: spouse - Psychiatric History Expresses thoughts of harming self/others: None Suicide Plan Description: No Plan Family Hx:: Coronary Artery Disease, Diabetes, Heart Attack, Hyperlipidemia, Hypertension Comment: Father - pacemaker - still alive ROS Obtained: Yes All systems reviewed & no additional complaints - Constitutional Constitutional: Denies headache(s) - Eyes Eyes: Denies loss of vision - ENT Ears, Nose, Mouth, and Throat: Denies sore throat - Cardiovascular Cardiovascular: Reports chest pain at rest, Reports dyspnea, Denies palpitations - Respiratory Respiratory: No cough - Gastrointestinal Gastrointestingal: Denies: heartburn - Genitourinary Male Genitourinary: Denies hematuria - Musculoskeletal Musculoskeletal: Denies joint pain, Denies limited range of motion - Integumentary/Breasts Skin/Breast: Denies rash - Neurologic Neurologic: Denies headache(s), Denies seizure-like activity Physical Exam - General General appearance: in no apparent distress - Head Head exam: normocephalic - Eye Eye exam: Present: PERRL, EOMI - ENT ENT exam: Present: mucous membranes dry - Neck Neck exam: Present: trachea midline - Respiratory Respiratory exam: Present: other (bilat rhonchi ). Absent: respiratory distress - Cardiovascular Cardiovascular exam: Present: regular rate, systolic murmur, +S4 - Abdominal Exam Abdominal exam: Present: soft - Extremities Exam Extremities exam: Absent: calf tenderness - Neurological Exam Neurological exam: Present: alert, oriented X3, CN II-XII intact - Psychiatric Psychiatric exam: Present: normal affect - Skin Skin exam: Absent: rash
[2018-12-21 23:13] LABS: Anion Gap 14.9 mEq/L (5-15); Calcium 9.8 mg/dL (8.5-10.1); Potassium 4.9 mmoL/L (3.5-5.1)
[2018-12-21 23:22] LABS: Basophils # 0.1 K/mm3 (0-0.2); Basophils % 0.7 % (0.1-2.0); Eosinophils # 0.2 K/mm3 (0.0-0.4); Eosinophils % 2.1 % (0.1-12.0); Hematocrit 43.7 % (42.0-52.0); Lymphocytes # 2.5 K/mm3 (0.7-4.5); Lymphocytes % 27.1 % (10-50); Mean Corpuscular Hemoglobin 29.8 pg (27.0-31.2); Mean Corpuscular Volume 93.1 fl (80-94); Mean Platelet Volume 7.7 fl (7.4-10.4); Monocytes # 0.5 K/mm3 (0.1-1.0); Monocytes % 5.7 % (1.7-9.3); Neutrophils # 5.9 K/mm3 (1.8-7.8); Neutrophils % 64.5 % (37.0-80.0); Platelet Count 278 K/mm3 (142-424); Red Blood Count 4.69 M/mm3 (4.60-6.20); Red Cell Distribution Width 13.8 % (11.5-17.5); White Blood Count 9.1 K/mm3 (4.8-10.8)
[2018-12-22 05:26] LABS: Anion Gap 14.1 mEq/L (5-15); Basophils # 0.1 K/mm3 (0-0.2); Basophils % 0.6 % (0.1-2.0); Calcium 9.1 mg/dL (8.5-10.1); Eosinophils # 0.1 K/mm3 (0.0-0.4); Eosinophils % 1.8 % (0.1-12.0); Hematocrit 37.5 % (42.0-52.0); Lymphocytes % 24.9 % (10-50); Mean Corpuscular HGB Conc 32.3 g/dL (31.8-35.4); Mean Corpuscular Hemoglobin 30.5 pg (27.0-31.2); Mean Corpuscular Volume 94.3 fl (80-94); Mean Platelet Volume 7.9 fl (7.4-10.4); Monocytes # 0.6 K/mm3 (0.1-1.0); Monocytes % 7.3 % (1.7-9.3); Neutrophils # 5.2 K/mm3 (1.8-7.8); Neutrophils % 65.4 % (37.0-80.0); Platelet Count 247 K/mm3 (142-424); Potassium 4.1 mmoL/L (3.5-5.1); Red Blood Count 3.98 M/mm3 (4.60-6.20); White Blood Count 7.9 K/mm3 (4.8-10.8)
[2018-12-22 05:28] LABS: Hemoglobin 12.1 g/dL (14.1-18.0)
[2018-12-22 05:30] LABS: INR 0.94 (0.9-1.1); Prothrombin Time 9.7 seconds (9.4-11.8)
--- NOTE | 2018-12-22 14:08 | History & Physical Report ---
*Admission Date: 12/21/18 *Chief complaint: chest pain *History of present illness: Mr. Tavera is a 57-year-old male with known cardiovascular disease, status post stenting >1 year ago, severe diabetes which is poorly controlled, hyperlipidemia, who presented to the ER yesterday with severe chest pain. Did not have any ST changes on EKG at admission but was noted to have a troponin of 0.9. Patient states the chest pain is worse on the left side and accompanied by SOA, cough and congestion. It started approximately 30 minutes before presentation to the ER. Feels the pain is very similar to his previous VT. Denies any fever, rash, nausea vomiting. Did take some nitroglycerin which helped a little bit with his pain. In the ER patient given additional nitro. Cardiology was consulted. Plan to cath patient this morning. Patient was taken this morning to the [facility] where he was noted to have significant coronary artery disease. Subtotal proximal LAD occlusion along with 99% left carotid occlusion. Significant collateralization around LAD, however given multivessel disease, uncontrolled diabetes, hyperlipidemia, and LV dysfunction, patient would be best served with transfer to tertiary center for likely CABG. Cardiology to contact cardiothoracic surgery for possible transfer. [facility] History Medical History: Reports:: Congestive Heart Failure, Diabetes Mellitus Type 2, Hyperlipidemia, Hypertension, MRSA, Myocardial Infarction Denies:: Cancer, Diabetes Mellitus Type 1, Internal Pacemaker, Seizures Have you ever received a pneumonia vaccine?: Yes Have you received a flu vaccine this season?: Yes Other Medical History: Reports: Arthritis, Glaucoma Other Surgeries: Yes: Cardiac Catheterization, Coronary Stent, Hernia Repair. No: Pacemaker Amputation: No Fractures: No - *Social History Educational Level: Completed GED/General Educational Development Smoking Status: Former smoker Tobacco Type: cigarettes # Packs/Day (cigarettes): 1 #Yrs smoked (if former smoker): 40 Alcohol Intake: former Alcohol Intake Frequency:: other Substance Use Type: denies use Occupational Status: employed Housing: house Household Members: spouse Travel in the last 8 weeks: None - Psychiatric History Expresses thoughts of harming self/others: None Suicide Plan Description: No Plan Family Hx:: Coronary Artery Disease, Diabetes, Heart Attack, Hyperlipidemia, Hypertension Review of Systems - Review of Systems Review of systems:: pertinent systems reviewed and negative unless documented below - *Neurologic Denies headache(s), Denies loss of vision, Denies seizure-like activity Meds Home Medications Medication Instructions Recorded Confirmed Type atorvastatin 80 mg tablet 80 mg PO HS 12/11/17 12/22/18 History dapagliflozin 10 mg tablet 10 mg PO DAILY 12/11/17 12/22/18 History digoxin 125 mcg tablet 125 mcg PO DAILY 12/11/17 12/22/18 History glimepiride 2 mg tablet 2 mg PO BID 12/11/17 12/22/18 History metformin 1,000 mg tablet 1,000 mg PO BID 12/11/17 12/22/18 History prasugrel 10 mg tablet 10 mg PO DAILY 12/11/17 12/22/18 History lisinopril 20 mg tablet 10 mg PO DAILY tab 04/10/18 12/22/18 History bisoprolol fumarate 10 mg tablet 5 mg PO BID tab 07/24/18 12/22/18 History furosemide 40 mg tablet 40 mg PO DAILY PRN 07/24/18 12/22/18 History gabapentin 100 mg capsule 200 mg PO QHS cap 07/24/18 12/22/18 History aspirin 325 mg tablet 325 mg PO DAILY 10/23/18 12/22/18 History nitroglycerin 0.4 mg sublingual 0.4 mg SUBLINGUAL Q5M PRN #30 tab 10/23/18 12/22/18 Rx tablet dulaglutide 1.5 mg/0.5 mL 1.5 mg SQ QWEEK 12/04/18 12/22/18 History subcutaneous pen injector Allergies Allergy/AdvReac Type Severity Reaction Status Date / Time No Known Allergies Allergy Verified 12/21/18 22:57 Exam Vital signs and Labs for Last 24 Hours: Temp Pulse Resp BP Pulse Ox 98.2 F 85 16 108/54 L 98 12/22/18 08:00 12/22/18 09:24 12/22/18 08:00 12/22/18 08:00 12/22/18 08:00 Laboratory Results - last 24 hr 12/21/18 22:53: Troponin I 0.92 H 12/21/18 22:53: WBC 9.1, RBC 4.69, Hgb 14.0 L, Hct 43.7, MCV 93.1, MCH 29.8, MCHC 32.0, RDW 13.8, Plt Count 278, MPV 7.7, Neut % (Auto) 64.5, Lymph % (Auto) 27.1, [place] % (Auto) 5.7, Eos % (Auto) 2.1, Baso % (Auto) 0.7, Neut # (Auto) 5.9, Lymph # (Auto) 2.5, [place] # (Auto) 0.5, Eos # (Auto) 0.2, Baso # (Auto) 0.1 12/21/18 22:53: Sodium 131 L, Potassium 4.9, Chloride 96 L, Carbon Dioxide 25, Anion Gap 14.9, BUN 25 H, Creatinine 1.19, Estimated Creat Clear 73, Estimated GFR 63, Est GFR ( Amer) 77, Glucose 521 H*, Calcium 9.8 12/21/18 22:53: Digoxin 0.26 L 12/22/18 04:20: WBC 7.9, RBC 3.98 L, Hgb 12.1 L D, Hct 37.5 L, MCV 94.3 H, MCH 30.5, MCHC 32.3, RDW 14.0, Plt Count 247, MPV 7.9, Neut % (Auto) 65.4, Lymph % (Auto) 24.9, [place] % (Auto) 7.3, Eos % (Auto) 1.8, Baso % (Auto) 0.6, Neut # (Auto) 5.2, Lymph # (Auto) 2.0, [place] # (Auto) 0.6, Eos # (Auto) 0.1, Baso # (Auto) 0.1 12/22/18 04:20: PT 9.7, INR 0.94 12/22/18 04:20: Sodium 134 L, Potassium 4.1, Chloride 99, Carbon Dioxide 25, Anion Gap 14.1, BUN 28 H, Creatinine 1.06, Estimated Creat Clear 81, Estimated GFR 72, Est GFR ( Amer) 87, Glucose 379 H D, Calcium 9.1, Magnesium 2.2 12/22/18 05:51: POC Glucose 343 H* 12/22/18 08:17: Troponin I 1.01 H I & O for Last 24 hours: Intake & Output 12/19/18 12/20/18 12/21/18 12/22/18 23:59 23:59 23:59 23:59 Weight 74.843 kg 73.482 kg Narrative: Patient is awake, pleasant. Oriented 3. Long, joy monteiro. Heart rate regular, lungs have crackles in both bases. Abdomen soft and nontender, no perfusion deficits, no edema peripherally. Assessment and Plan (1) Non-STEMI (non-ST elevated myocardial infarction) Current visit: Yes Status: Acute Category: Medical Code(s): I21.4 - Non-ST elevation (NSTEMI) myocardial infarction (2) Renal insufficiency Current visit: Yes Status: Chronic Category: Medical Code(s): N28.9 - Disorder of kidney and ureter, unspecified (3) Diabetes mellitus Current visit: Yes Status: Chronic Qualifiers: Diabetes mellitus type: type 2 Diabetes mellitus [facility] insulin use: [facility] use Diabetes mellitus complication status: with unspecified complications Qualified Code(s): E11.8 - Type 2 diabetes mellitus with unspecified complications Category: Medical Code(s): E11.9 - Type 2 diabetes mellitus without complications (4) Congestive heart failure Current visit: No Status: Chronic Qualifiers: Heart failure type: unspecified Heart failure chronicity: acute on chronic Qualified Code(s): I50.9 - Heart failure, unspecified Category: Medical Code(s): I50.9 - Heart failure, unspecified (5) Hyperlipidemia Current visit: No Status: Chronic Qualifiers: Hyperlipidemia type: other hyperlipidemia Qualified Code(s): E78.49 - Other hyperlipidemia; E78.4 - Other hyperlipidemia Category: Medical Code(s): E78.5 - Hyperlipidemia, unspecified - Assessment and plan all Dx Assessment and Plan for all problems:: Mr. Tavera is a 58-year-old male with multiple comorbidities, poorly controlled diabetes and hypercholesterolemia. He presented with NSTEMI and hyperglycemia. Taken for heart cath and noted to have significant disease necessitating CABG. Continue to medically manage while attempting to transfer to tertiary center for surgical intervention. Pain improved with current treatment. Hyperglycemia UnControlled diabetes, insulin-dependent -Likely a culprit patient's cardiovascular disease and and carotid disease -Continue sliding scale insulin NSTEMI -Status post heart cath, subtotal proximal LAD occlusion, collateralization, left carotid 99% occluded. Patient necessitating bypass surgery over stenting. Cardiology to contact cardiothoracic surgery at to discuss possible transfer -Continue prasugrel CHF LV dysfunction HTN -Continue goal-directed therapy and medical management with statin, beta blockade, ACEi -Continue digoxin and verapamil
--- NOTE | 2018-12-22 15:37 | Pharmacy Consult Notes ---
[facility] Pharmacy VTE Monitoring - Patient Demographics Admission date: 12/22/18 Report Date: 12/22/18 Time: 15:37 Allergies/Adverse Reactions: Patient Allergies No Known Allergies Allergy (Verified 12/21/18 22:57) Height: 1.7 m Weight: 73.482 kg Patient Problems: Current Active Problems Renal insufficiency (Chronic) Non-STEMI (non-ST elevated myocardial infarction) (Acute) Diabetes mellitus (Chronic) - VTE Risk Labs: VTE Related Lab Results Hgb 12.1 g/dL (14.1-18.0) L D 12/22/18 04:20 Hct 37.5 % (42.0-52.0) L 12/22/18 04:20 Plt Count 247 K/mm3 (142-424) 12/22/18 04:20 PT 9.7 seconds (9.4-11.8) 12/22/18 04:20 INR 0.94 (0.9-1.1) 12/22/18 04:20 BUN 28 mg/dL (7-18) H 12/22/18 04:20 Creatinine 1.06 mg/dL (0.70-1.30) 12/22/18 04:20 Estimated Creat Clear 81 mL/min (50-200) 12/22/18 04:20 Was VTE Risk Assessment Performed: Yes VTE Risk Level: Moderate Risk - Prophylaxis VTE Prophylaxis Ordered?: Yes Types of VTE Prophylaxis: TEDS Knee High Location of Applied Device: Bilateral Lower Extremeties
--- NOTE | 2018-12-22 15:44 | Discharge Summary ---
General - General Admission date:: 12/22/18 Discharge date: 12/22/18 HPI HPI: Mr. Tavera is a 57-year-old male with known cardiovascular disease, status post stenting >1 year ago, severe diabetes which is poorly controlled, hyperlipidemia, who presented to the ER yesterday with severe chest pain. Did not have any ST changes on EKG at admission but was noted to have a troponin of 0.9. Patient states the chest pain is worse on the left side and accompanied by SOA, cough and congestion. It started approximately 30 minutes before presentation to the ER. Feels the pain is very similar to his previous SD. Denies any fever, rash, nausea vomiting. Did take some nitroglycerin which helped a little bit with his pain. In the ER patient given additional nitro. Cardiology was consulted. Plan to cath patient this morning. Patient was taken this morning to [facility] where he was noted to have significant coronary artery disease. Subtotal proximal LAD occlusion along with 99% left carotid occlusion. Significant collateralization around LAD, however given multivessel disease, uncontrolled diabetes, hyperlipidemia, and LV dysfunction, patient would be best served with transfer to tertiary center for likely CABG. Cardiology to contact cardiothoracic surgery for possible transfer. Hospital Course Hospital Course: Admitted to Medicine for chest pain and elevated troponin. Taken for heart catheterization. Found to have critical stenosis of proximal LAD as well as assessment of carotid artery showing severe stenosis. Cardiology felt patient would be best served by correction of cardiovascular disease and obstructions with CABG procedure. Contacted cardiothoracic surgery at . Patient accepted for transfer. Medically managed during admission for chest pain with nitroglycerin, beta-marisa, antiplatelet medication. Hyperglycemia managed with sliding scale insulin during admission. Objective Vital signs: Temp Pulse Resp BP Pulse Ox 98.2 F 86 18 144/86 H 93 L 12/22/18 08:00 12/22/18 14:35 12/22/18 14:35 12/22/18 14:35 12/22/18 14:35 - *Routine HEENT Exam Head: Present: normocephalic, atraumatic Eye: Present: EOMI, PERRL ENT: Present: mucous membranes moist - *Routine Neck Exam Present: supple, full ROM - *Routine Respiratory Exam Present: CTA bilaterally. Absent: wheezes, crackles - *Routine Cardiovascular Exam Present: RRR, Normal S1, Normal S2 - *Routine Abdominal Exam Present: soft, normoactive bowel sounds - *Routine Rectal Exam Patient deferred: visual exam - *Routine Exam Patient deferred: penile exam - *Routine Extremities Exam Present: edema (trace). Absent: cyanosis, clubbing - *Routine Skin Exam Present: intact. Absent: cyanosis, erythema Comments: Numerous tattoos - *Routine Neurological Exam Present: alert, oriented X3. Absent: altered mental status Results Labs on day of discharge: Labs from last 24 hours 12/22/18 12/22/18 12/22/18 08:17 05:51 04:20 WBC RBC Hgb Hct MCV MCH MCHC RDW Plt Count MPV Neut % (Auto) Lymph % (Auto) Emanuel % (Auto) Eos % (Auto) Baso % (Auto) Neut # (Auto) Lymph # (Auto) Emanuel # (Auto) Eos # (Auto) Baso # (Auto) PT INR Sodium 134 L Potassium 4.1 Chloride 99 Carbon Dioxide 25 Anion Gap 14.1 BUN 28 H Creatinine 1.06 Estimated Creat Clear 81 Estimated GFR 72 Est GFR ( Amer) 87 Glucose 379 H D POC Glucose 343 H* Calcium 9.1 Magnesium 2.2 Troponin I 1.01 H Digoxin 12/22/18 12/22/18 12/21/18 04:20 04:20 22:53 WBC 7.9 RBC 3.98 L Hgb 12.1 L D Hct 37.5 L MCV 94.3 H MCH 30.5 MCHC 32.3 RDW 14.0 Plt Count 247 MPV 7.9 Neut % (Auto) 65.4 Lymph % (Auto) 24.9 Emanuel % (Auto) 7.3 Eos % (Auto) 1.8 Baso % (Auto) 0.6 Neut # (Auto) 5.2 Lymph # (Auto) 2.0 Emanuel # (Auto) 0.6 Eos # (Auto) 0.1 Baso # (Auto) 0.1 PT 9.7 INR 0.94 Sodium Potassium Chloride Carbon Dioxide Anion Gap BUN Creatinine Estimated Creat Clear Estimated GFR Est GFR ( Amer) Glucose POC Glucose Calcium Magnesium Troponin I Digoxin 0.26 L 12/21/18 12/21/18 12/21/18 22:53 22:53 22:53 WBC 9.1 RBC 4.69 Hgb 14.0 L Hct 43.7 MCV 93.1 MCH 29.8 MCHC 32.0 RDW 13.8 Plt Count 278 MPV 7.7 Neut % (Auto) 64.5 Lymph % (Auto) 27.1 Emanuel % (Auto) 5.7 Eos % (Auto) 2.1 Baso % (Auto) 0.7 Neut # (Auto) 5.9 Lymph # (Auto) 2.5 Emanuel # (Auto) 0.5 Eos # (Auto) 0.2 Baso # (Auto) 0.1 PT INR Sodium 131 L Potassium 4.9 Chloride 96 L Carbon Dioxide 25 Anion Gap 14.9 BUN 25 H Creatinine 1.19 Estimated Creat Clear 73 Estimated GFR 63 Est GFR ( Amer) 77 Glucose 521 H* POC Glucose Calcium 9.8 Magnesium Troponin I 0.92 H Digoxin DS: Diagnosis - Discharge Diagnosis (1) Non-STEMI (non-ST elevated myocardial infarction) Status: Acute (2) Renal insufficiency Status: Chronic (3) Diabetes mellitus Status: Chronic (4) Congestive heart failure Status: Chronic (5) Hyperlipidemia Status: Chronic Discharge Plan - Patient Discharge Instructions ACTIVITY: Ambulate as tolerated, Limited activity DIET: low fat, low cholesterol Patient Instructions: DI for Heart Attack, Heart Attack, Angina, Heart-Healthy Diet, DI for Angina - Follow up Plan Disposition: Xfer Short-Term Hosp Home Medications: Home Medications Medication Instructions Recorded Confirmed Type atorvastatin 80 mg tablet 80 mg PO HS 12/11/17 12/22/18 History dapagliflozin 10 mg tablet 10 mg PO DAILY 12/11/17 12/22/18 History digoxin 125 mcg tablet 125 mcg PO DAILY 12/11/17 12/22/18 History glimepiride 2 mg tablet 2 mg PO BID 12/11/17 12/22/18 History metformin 1,000 mg tablet 1,000 mg PO BID 12/11/17 12/22/18 History prasugrel 10 mg tablet 10 mg PO DAILY 12/11/17 12/22/18 History lisinopril 20 mg tablet 10 mg PO DAILY tab 04/10/18 12/22/18 History bisoprolol fumarate 10 mg tablet 5 mg PO BID tab 07/24/18 12/22/18 History furosemide 40 mg tablet 40 mg PO DAILY PRN 07/24/18 12/22/18 History gabapentin 100 mg capsule 200 mg PO HS cap 07/24/18 12/22/18 History aspirin 325 mg tablet 325 mg PO DAILY 10/23/18 12/22/18 History nitroglycerin 0.4 mg sublingual 0.4 mg SUBLINGUAL Q5M PRN #30 tab 10/23/18 12/22/18 Rx tablet dulaglutide 1.5 mg/0.5 mL 1.5 mg SQ QWEEK 12/04/18 12/22/18 History subcutaneous pen injector Prescriptions/Medication Reconciliation: New Insulin Lispro [HumaLOG 100 units/mL 3mL vial (SSI)] 0 unit SQ ACHS ml Continue atorvastatin 80 mg tablet 80 mg PO HS digoxin 125 mcg tablet 125 mcg PO DAILY prasugrel 10 mg tablet 10 mg PO DAILY glimepiride 2 mg tablet 2 mg PO BID metformin 1,000 mg tablet 1,000 mg PO BID lisinopril 20 mg tablet 10 mg PO DAILY tab furosemide 40 mg tablet 40 mg PO DAILY PRN PRN Reason: CONGESTIVE HEART FAILURE gabapentin 100 mg capsule 200 mg PO HS cap dapagliflozin 10 mg tablet 10 mg PO DAILY bisoprolol fumarate 10 mg tablet 5 mg PO BID tab aspirin 325 mg tablet 325 mg PO DAILY nitroglycerin 0.4 mg sublingual tablet 0.4 mg SUBLINGUAL Q5M PRN #30 tab PRN Reason: Chest Pain dulaglutide 1.5 mg/0.5 mL subcutaneous pen injector 1.5 mg SQ QWEEK
== END 2018-12-22 21:00 | disposition short-term general hospital (02) | DRG 281 ==
LOC: ER 22:49 → 2ND 22:49 → OBSVTOIN 12-22 00:55 → 2ND 12-22 00:58 → ICU 12-22 18:48
PROVIDERS: ADMIT Internal Medicine Adolescent Medicine; ATTEND Internal Medicine Adolescent Medicine
CPT/HCPCS: 36224; 36228; 36415; 71020; 71046; 80048; 80162; 82962; 83735; 84484; 85025; 85610; 93005; 93458; 99152; 99153; 99284; C1725; C1769; J1644; Q9967

== ENCOUNTER → 2019-02-28 17:45 | Outpatient (CLI) | payer BC, SELFPAY | PROVIDERS: Visit Provider Podiatrist | DX: Z98.890 Other specified postprocedural states (principal) | CPT/HCPCS: 87070; 87077; 87205 ==

== ENCOUNTER 2019-03-21 22:49 | Inpatient (IN) ==
[2019-03-21 23:11] LABS: ABG Base Excess -4.2 mmol/L (-2.4-2.3); ABG HCO3 22.7 mmhg (22.0-26.0); ABG Oxygen Saturation 96 % (90-100); ABG PH 7.27 mmol/L (7.35-7.45); ABG PO2 92.4 mmhg (80-100); ABG TCO2 24.3 mmhg (23-27)
[2019-03-21 23:12] LABS: Allen's Test Acceptable; Oxygen 100% NRB %
[2019-03-21 23:13] LABS: ABG PCO2 50.9 mmhg (35.0-45.0)
--- NOTE | 2019-03-21 23:13 | Emergency Department Note ---
ED Disposition Clinical Impression: Flash pulmonary edema, Acute respiratory failure with hypoxia, Elevated troponin I level, ASCVD (arteriosclerotic cardiovascular disease), Non-STEMI (non-ST elevated myocardial infarction) Disposition: Admitted as Observation Condition on Discharge: Fair Referrals: Basil Sebastian MD [Primary Care Provider] - Time of Disposition: :18 - Critical Care Critical Care Time: No Attestation: On 03/21/19, the high probability of a clinically significant, sudden or life threatening deterioration of the following system(s) required my full and direct attention, intervention and personal management. The time I documented below is in addition to time spent performing reported procedures but includes the following listed in this critical care notation. Medical Decision Making - Medical Records Medical records reviewed: Yes: I reviewed the patient's medical records. - Brandyn Inquiry Pt receiving controlled substance: No Brandyn was queried for this patient: No Vital Signs: 03/21/19 22:49 03/21/19 23:33 03/21/19 23:41 Temperature 97.6 F 99.3 F Temperature Source Oral Rectal Pulse Rate 150 H Pulse Rate [Right Brachial] 145 H 117 H Respiratory Rate 30 H 26 H Blood Pressure [Right Arm] 230/130 H 232/125 H Blood Pressure Mean [Right Arm] 163 160 Blood Pressure Source [Right Arm] Manual Cuff/ Auscultation Blood Pressure Position [Right Arm] Sitting 02 Sat by Pulse Oximetry 97 98 Oxygen Delivery Method Non-Rebreather Non-Rebreather Oxygen Flow Rate (LPM) 10 15 03/21/19 23:43 03/21/19 23:52 03/22/19 00:00 Temperature 98.9 F Temperature Source Rectal Pulse Rate Pulse Rate [Right Brachial] 128 H 129 H 118 H Respiratory Rate 25 H 24 Blood Pressure [Right Arm] 199/117 H 169/95 H 166/84 H Blood Pressure Mean [Right Arm] 144 119 111 Blood Pressure Source [Right Arm] Blood Pressure Position [Right Arm] 02 Sat by Pulse Oximetry 98 98 97 Oxygen Delivery Method Non-Rebreather Non-Rebreather Non-Rebreather Oxygen Flow Rate (LPM) 15 15 15 03/22/19 00:15 03/22/19 00:30 03/22/19 00:44 Temperature Temperature Source Pulse Rate Pulse Rate [Right Brachial] 116 H 114 H 110 H Respiratory Rate 25 H 24 24 Blood Pressure [Right Arm] 163/94 H 156/90 H 141/82 H Blood Pressure Mean [Right Arm] 117 112 101 Blood Pressure Source [Right Arm] Blood Pressure Position [Right Arm] 02 Sat by Pulse Oximetry 97 99 97 Oxygen Delivery Method Non-Rebreather Non-Rebreather Non-Rebreather Oxygen Flow Rate (LPM) 15 15 15 03/22/19 00:56 03/22/19 01:10 03/22/19 01:30 Temperature Temperature Source Pulse Rate Pulse Rate [Right Brachial] 103 H 103 H 101 H Respiratory Rate 22 21 22 Blood Pressure [Right Arm] 110/71 121/71 123/73 Blood Pressure Mean [Right Arm] 84 87 89 Blood Pressure Source [Right Arm] Blood Pressure Position [Right Arm] 02 Sat by Pulse Oximetry 98 97 100 Oxygen Delivery Method Non-Rebreather Non-Rebreather Non-Rebreather Oxygen Flow Rate (LPM) 15 15 15 03/22/19 01:41 03/22/19 01:59 Temperature Temperature Source Pulse Rate Pulse Rate [Right Brachial] 100 H 101 H Respiratory Rate 21 19 Blood Pressure [Right Arm] 148/78 H 136/83 Blood Pressure Mean [Right Arm] 101 100 Blood Pressure Source [Right Arm] Blood Pressure Position [Right Arm] 02 Sat by Pulse Oximetry 97 99 Oxygen Delivery Method Non-Rebreather Non-Rebreather Oxygen Flow Rate (LPM) 12 12 - Lab Data Lab results reviewed: Yes: I reviewed the patient's lab results. Lab Results 03/21/19 22:58: Specimen Source Left radial, O2 % 100% nrb, ABG pH 7.27 L, ABG pCO2 50.9 H, ABG pO2 92.4, ABG HCO3 22.7, ABG Total CO2 24.3, ABG O2 Saturation 96, ABG Base Excess -4.2 L, Timo Test Acceptable 03/21/19 23:11: Sodium 132 L, Potassium 4.0, Chloride 96 L, Carbon Dioxide 27, Anion Gap 13.0, BUN 20 H, Creatinine 1.29, Estimated Creat Clear 66, Estimated GFR 58 L, Est GFR ( Amer) 70, Glucose 460 H*, Calcium 9.2, Troponin I 0.85 H 03/21/19 23:11: WBC 10.4, RBC 5.15, Hgb 14.5, Hct 46.9, MCV 91.1, MCH 28.3, MCHC 31.0 L, RDW 14.4, Plt Count 366, MPV 8.1, Neut % (Auto) 51.4, Lymph % (Auto) 32.8, Gibson % (Auto) 4.9, Eos % (Auto) 9.9, Baso % (Auto) 1.1, Neut # (Auto) 5.3, Lymph # (Auto) 3.4, Gibson # (Auto) 0.5, Eos # (Auto) 1.0 H, Baso # (Auto) 0.1 03/21/19 23:11: Lactate 2.1 H 03/21/19 23:15: Urine Color Yellow, Urine Appearance Clear, Urine pH 6.5, Ur Specific [place] <= 1.005, Urine Protein Negative, Urine Glucose (UA) 3+, Urine Ketones Negative, Urine Blood Negative, Urine Nitrate Negative, Urine Bilirubin Negative, Urine Urobilinogen 0.2, Ur Leukocyte Esterase Negative, Urine WBC Occasional, Urine Bacteria Trace 03/21/19 23:15: B-Natriuretic Peptide 749 H 03/21/19 23:15: D-Dimer 1660 H* 03/22/19 00:00: Acetone Level None detected Result diagrams: 03/21/19 23:11 03/21/19 23:11 Orders (Tests/Meds): ED MEDICATIONS Generic Name Dose Route Start Last Admin Trade Name Freq PRN Reason Stop Dose Admin Albuterol/Ipratropium 3 ml 03/21/19 23:45 03/22/19 00:08 Duoneb 3ml Neb IH 04/20/19 23:44 3 ml Q1H MK Administration Nitroglycerin/Dextrose 250 mls @ 3 mls/hr 03/21/19 23:15 03/21/19 23:43 Nitroglycerin 50mg/250ml D5w IV 04/20/19 23:14 10 mcg/min .Q24H MK 3 mls/hr Administration Protocol 10 MCG/MIN Discontinued Medications Generic Name Dose Route Start Last Admin Trade Name Freq PRN Reason Stop Dose Admin Acetaminophen 650 mg 03/21/19 23:31 03/21/19 23:32 Acetaminophen 650mg Suppository RC 03/21/19 23:32 650 mg ONCE ONE Administration Enoxaparin Sodium 70 mg 03/22/19 00:46 Lovenox 100mg/Ml Syringe SQ 03/22/19 00:47 ONCE ONE Furosemide 80 mg 03/21/19 23:10 03/21/19 23:28 Lasix 20mg/2ml Vial IV 03/21/19 23:11 80 mg ONCE ONE Administration Insulin Human Lispro 10 unit 03/22/19 00:06 03/22/19 00:56 Humalog 100 Units/Ml 3ml Vial (Ssi) SQ 03/22/19 00:07 10 unit ONCE ONE Administration Ioversol 70 ml 03/22/19 01:36 03/22/19 01:39 Rad-Optiray 350 100ml Vial IV 03/22/19 01:37 70 ml ONCE ONE Administration Protocol Levalbuterol HCl 1.25 mg 03/21/19 23:00 03/21/19 23:31 Xopenex 1.25mg/3ml Neb IH 03/21/19 23:01 1.25 mg ONCE ONE Administration Methylprednisolone Sodium Succinate 125 mg 03/21/19 23:11 03/21/19 23:28 Solu-Medrol 125mg/2ml Vial IV 03/21/19 23:12 125 mg ONCE ONE Administration Sodium Chloride 50 ml 03/22/19 01:36 03/22/19 01:38 Rad-Ns 50ml Vial IV 03/22/19 01:37 40 ml ONCE ONE Administration Sodium Chloride 10 ml 03/22/19 01:36 03/22/19 01:39 Rad-Saline Flush 10ml Syringe IV 03/22/19 01:37 10 ml ONCE ONE Administration ORDERS Category Date Time Status CT Chest w/PE protocol [CT angio chest] Stat Cat Scan 03/22/19 00:26 Taken XR chest portable Stat Exams 03/21/19 22:58 Taken Blood Culture Stat Micro 03/21/19 23:11 Received ECG Request by /Ralph Stat Y 03/21/19 22:57 Ordered - Physician Consults Physician Consulted: soraya Time: 02:15 Reason -: Admission, Pt condition Comment/Response: admit, consult toribio - NICOLAS Score for Non-Stemi Age of Patient: 50-59 years old Heart Rate: 110-149 bpm Systolic Blood Pressure: 200 mmhg or higher Serum Creatinine: 1.20-1.59 mg/dl CHF Killip Class: III-Pulmonary Edema Other Risk Factors: Elevated Cardiac Enzymes or Biomarkers Non-Stemi Risk Score: 128 Risk Stratification: 109-140 = Intermediate Ri General Adult HPI - General Chief complaint: Shortness of Breath/Dyspnea Stated complaint: SOA Time Seen by Provider: 03/21/19 23:13 Mode of Arrival: Wheelchair Limitations: No Limitations Description of Symptoms (Recalled from ER Triage Doc. by RN): Pt c/o SOA, and wheezing that started about 30 mins ago. He states he has CHF. - History of Present Illness HPI narrative: extensive cardiac history, CABG in December this year and more recent CEA at . Tonight, sudden onset shortness of breath without chest pain. Diaphoretic on arrival, tachycardic, hypoxic and in respiratory distress. reports insidious onset peripheral edema over last week - Related Data Home Medications Medication Instructions Recorded Confirmed atorvastatin 80 mg tablet 80 mg PO HS 12/11/17 03/21/19 dapagliflozin 10 mg tablet 10 mg PO DAILY 12/11/17 03/21/19 metformin 1,000 mg tablet 1,000 mg PO BID 12/11/17 03/21/19 furosemide 40 mg tablet 40 mg PO DAILY PRN 07/24/18 03/21/19 gabapentin 100 mg capsule 200 mg PO HS cap 07/24/18 03/21/19 aspirin 81 mg tablet,delayed 81 mg PO DAILY 01/07/19 03/21/19 release carvedilol 6.25 mg tablet 6.25 mg PO BID 01/07/19 03/21/19 clopidogrel 75 mg tablet 75 mg PO DAILY 01/07/19 03/21/19 dulaglutide 1.5 mg/0.5 mL 1.5 mg SQ QWEEK 01/07/19 03/21/19 subcutaneous pen injector insulin aspart prot-aspart 100 27 unit SQ BID 01/07/19 03/21/19 unit/mL (70-30) subcutaneous cartridge lisinopril 20 mg tablet 5 mg PO DAILY tab 02/12/19 03/21/19 Previous Rx's Medication Instructions Recorded nitroglycerin 0.4 mg sublingual 0.4 mg SUBLINGUAL Q5M PRN #30 tab 10/23/18 tablet Allergies Allergy/AdvReac Type Severity Reaction Status Date / Time No Known Allergies Allergy Verified 03/05/19 08:37 [facility] History - Hepatitis A Screen Drug use history?: No High risk sexual behaviors?: No History of sexually transmitted infection?: No Currently employed?: No Childcare worker?: No Do you have indoor plumbing?: Yes Do you have electricity?: Yes Attestation statement:: This patient has been screened for Hepatitis A risk factors. I have reviewed the patient's past medical history: Yes Medical History: Reports:: Congestive Heart Failure, Coronary Artery Disease, Diabetes Mellitus Type 2, Hyperlipidemia, Hypertension, MRSA, Myocardial Infarction Denies:: Cancer, Diabetes Mellitus Type 1, Internal Pacemaker, Lung Disease, Seizures Other Medical History: Reports: Arthritis, Glaucoma Other Surgeries: Yes: CABG, Cardiac Catheterization, Coronary Stent, Hernia Repair, Open Heart Surgery, Other (L foot Sx). No: Pacemaker Amputation: No Fractures: No Comment: open heart surgery 2018. cyst removed. stents right leg - Social History Smoking Status: Former smoker Tobacco Type: cigarettes # Packs/Day (cigarettes): 1 #Yrs smoked (if former smoker): 40 Alcohol Intake: never Alcohol Intake Frequency:: other Substance Use Type: denies use Occupational Status: employed Housing: house Household Members: spouse - Psychiatric History Expresses thoughts of harming self/others: None Suicide Plan Description: No Plan Family Hx:: Coronary Artery Disease, Diabetes, Heart Attack, Hyperlipidemia, Hypertension Comment: Father - pacemaker - still alive ROS Obtained: Yes All systems reviewed & no additional complaints - Constitutional Constitutional: Denies chills, Denies fever(s) - ENT Ears, Nose, Mouth, and Throat: Denies sinus pain, Denies throat swelling - Cardiovascular Cardiovascular: Denies chest pain, Denies chest pain at rest, Reports diaphoresis, Reports dyspnea, Reports dyspnea on exertion, Reports lig htheadedness, Reports rapid heart rate - Respiratory Respiratory: Yes dyspnea, Yes dyspnea on exertion - Gastrointestinal Gastrointestingal: Denies: abdominal pain - Genitourinary Male Genitourinary: Denies difficulty urinating - Musculoskeletal Musculoskeletal: Denies joint pain, Denies joint stiffness, Denies joint swelling - Integumentary/Breasts Skin/Breast: Reports skin swelling, Reports other (trace in legs) - Neurologic Neurologic: Reports dizziness Physical Exam - General General appearance: alert, anxious - Head Head exam: atraumatic, normocephalic, normal inspection - Eye Eye exam: Present: normal appearance, PERRL, EOMI - ENT ENT exam: Present: normal exam, normal oropharynx, mucous membranes moist, TM's normal bilaterally, normal external ear exam - Neck Neck exam: Present: normal inspection, full ROM, trachea midline. Absent: meningismus, lymphadenopathy - Chest Chest inspection: Present: symmetric chest wall rise - Respiratory Respiratory exam: Present: respiratory distress, wheezes, prolonged expiratory phase, other (wet sounding). Absent: normal lung sounds bilaterally - Cardiovascular Cardiovascular exam: Present: tachycardia - Abdominal Exam Abdominal exam: Present: soft, normal bowel sounds. Absent: distention, tenderness, guarding - Extremities Exam Extremities exam: Present: normal inspection, full ROM, normal capillary refill. Absent: calf tenderness - Neurological Exam Neurological exam: Present: alert, oriented X3 - Psychiatric Psychiatric exam: Present: normal affect, normal mood - Skin Skin exam: Present: warm, diaphoresis
[2019-03-21 23:31] LABS: Basophils # 0.1 K/mm3 (0-0.2); Basophils % 1.1 % (0.1-2.0); Eosinophils % 9.9 % (0.1-12.0); Hematocrit 46.9 % (42.0-52.0); Hemoglobin 14.5 g/dL (14.1-18.0); Lymphocytes # 3.4 K/mm3 (0.7-4.5); Lymphocytes % 32.8 % (10-50); Mean Corpuscular Hemoglobin 28.3 pg (27.0-31.2); Mean Corpuscular Volume 91.1 fl (80-94); Mean Platelet Volume 8.1 fl (7.4-10.4); Monocytes # 0.5 K/mm3 (0.1-1.0); Monocytes % 4.9 % (1.7-9.3); Neutrophils # 5.3 K/mm3 (1.8-7.8); Neutrophils % 51.4 % (37.0-80.0); Platelet Count 366 K/mm3 (142-424); Red Blood Count 5.15 M/mm3 (4.60-6.20); Red Cell Distribution Width 14.4 % (11.5-17.5); White Blood Count 10.4 K/mm3 (4.8-10.8)
[2019-03-21 23:39] LABS: Microscopic, Urine URINE MICROSCOPIC (MICROSCOPIC)
[2019-03-21 23:53] LABS: Appearance,Urine CLEAR (Clear); Bilirubin,Urine Negative (Negative); Blood, Urine Negative (Negative); Color,Urine YELLOW (Yellow); Glucose,Urine (UA) 3+ (Negative); Ketones,Urine Negative (Negative); Leukocyte Esterase,Urine Negative (Negative); PH,Urine 6.5 (5.0-8.5); Protein,Urine Negative (Negative); Specific Gravity, Urine <= 1.005 (1.005-1.030); Urobilinogen,Urine 0.2 EU/dl (0.2)
[2019-03-21 23:58] LABS: Bacteria,Urine Trace /lpf; WBC,Urine Occasional #/hpf (0-3)
[2019-03-22] LABS: Calcium 9.2 mg/dL (8.5-10.1)
[2019-03-22 06:19] LABS: Basophils % 0.4 % (0.1-2.0); Eosinophils % 0.3 % (0.1-12.0); Hematocrit 39.1 % (42.0-52.0); Lymphocytes # 0.7 K/mm3 (0.7-4.5); Lymphocytes % 8.8 % (10-50); Mean Corpuscular HGB Conc 31.4 g/dL (31.8-35.4); Mean Corpuscular Hemoglobin 27.8 pg (27.0-31.2); Mean Corpuscular Volume 88.5 fl (80-94); Mean Platelet Volume 8.2 fl (7.4-10.4); Monocytes # 0.3 K/mm3 (0.1-1.0); Monocytes % 3.4 % (1.7-9.3); Neutrophils # 7.1 K/mm3 (1.8-7.8); Platelet Count 272 K/mm3 (142-424); Red Blood Count 4.41 M/mm3 (4.60-6.20); Red Cell Distribution Width 14.5 % (11.5-17.5); White Blood Count 8.1 K/mm3 (4.8-10.8)
[2019-03-22 06:27] LABS: Anion Gap 13.7 mEq/L (5-15); Calcium 8.7 mg/dL (8.5-10.1); Potassium 3.7 mmoL/L (3.5-5.1)
[2019-03-22 07:20] LABS: Hemoglobin 12.3 g/dL (14.1-18.0)
[2019-03-22 08:04] LABS: Lymphocytes % 4 % (10-50); Monocytes % 3 % (2-9); Neutrophils % 92 % (42-76); RBC Morphology Normal; Total Cells Counted 100
--- NOTE | 2019-03-22 09:23 | History & Physical Report ---
*Admission Date: 03/21/19 *Chief complaint: Short of breath *History of present illness: Mr. Tavera is a 58-year-old male with known cardiovascular disease, status post stenting >1 year ago, severe diabetes which is poorly controlled, hyperlipidemia, and CABG in December who presented to the ER yesterday with chest pressure and shortness of breath. Patient states last night when he laid down for bed he became short of breath and developed a cough. Took his Lasix with no improvement so he came to the ER. Noted at that time to be hypoxic with findings on imaging of bilateral groundglass opacification/airspace disease concerning for flash pulmonary edema. Additionally he complains of fever, impr oving infection at the most distal portion of his sternotomy scar. Denies any rash, nausea vomiting, lower extremity edema. He was initiated on nitroglycerin drip and oxygen. Given diuretics with significant diuresis of greater than 2- 1/2 L overnight. Cardiology was consulted to assist with patient's care. On interview this morning, patient has no complaints. States his breathing is about the same may be a little better. Has a Vanessa catheter in place to monitor adequate output. Nitroglycerin drip has been turned off with improvement in his blood pressure and heart rate. [facility] History I have reviewed the patient's past medical history: Yes Medical History: Reports:: Congestive Heart Failure, Coronary Artery Disease, Diabetes Mellitus Type 2, Hyperlipidemia, Hypertension, Myocardial Infarction Denies:: Cancer, Diabetes Mellitus Type 1, Internal Pacemaker, Lung Disease, MRSA, Seizures *Have you ever received a pneumonia vaccine?: Yes *Have you received a flu vaccine this season?: Yes Other Medical History: Reports: Arthritis, Glaucoma Other Surgeries: Yes: CABG, Cardiac Catheterization, Coronary Stent, Hernia Repair, Open Heart Surgery, Other (cadaver L foot, carotid.). No: Pacemaker Amputation: No Fractures: No - *Social History Educational Level: Completed GED/General Educational Development Smoking Status: Current some day smoker Tobacco Type: cigarettes # Packs/Day (cigarettes): 2 #Yrs smoked (if former smoker): 40 Alcohol Intake: never Alcohol Intake Frequency:: other Substance Use Type: denies use *Occupational Status:: employed Housing: house Household Members: spouse, children *Travel in the last 8 weeks: None - Psychiatric History Expresses thoughts of harming self/others: None Suicide Plan Description: No Plan Family Hx:: Coronary Artery Disease, Diabetes, Heart Attack, Hyperlipidemia, Hypertension Review of Systems - Review of Systems Review of systems:: pertinent systems reviewed and negative unless documented below - *Neurologic Reports dizziness Meds Home Medications Medication Instructions Recorded Confirmed Type atorvastatin 80 mg tablet 80 mg PO HS 12/11/17 03/22/19 History dapagliflozin 10 mg tablet 10 mg PO DAILY 12/11/17 03/22/19 History metformin 1,000 mg tablet 1,000 mg PO BID 12/11/17 03/22/19 History furosemide 40 mg tablet 40 mg PO DAILY PRN 07/24/18 03/22/19 History gabapentin 100 mg capsule 200 mg PO HS cap 07/24/18 03/22/19 History nitroglycerin 0.4 mg sublingual 0.4 mg SUBLINGUAL Q5M PRN #30 tab 10/23/18 03/22/19 Rx tablet aspirin 81 mg tablet,delayed 81 mg PO DAILY 01/07/19 03/22/19 History release carvedilol 6.25 mg tablet 6.25 mg PO BID 01/07/19 03/22/19 History clopidogrel 75 mg tablet 75 mg PO DAILY 01/07/19 03/22/19 History dulaglutide 1.5 mg/0.5 mL 1.5 mg SQ QWEEK 01/07/19 03/22/19 History subcutaneous pen injector insulin aspart prot-aspart 100 27 unit SQ BID 01/07/19 03/22/19 History unit/mL (70-30) subcutaneous cartridge lisinopril 20 mg tablet 5 mg PO DAILY tab 02/12/19 03/22/19 History Allergies Allergy/AdvReac Type Severity Reaction Status Date / Time No Known Allergies Allergy Verified 03/22/19 03:11 Exam Vital signs and Labs for Last 24 Hours: Temp Pulse Resp BP Pulse Ox 97.7 F 97 H 18 142/72 H 97 03/22/19 09:00 03/22/19 09:00 03/22/19 09:00 03/22/19 09:00 03/22/19 09:00 Laboratory Results - last 24 hr 03/21/19 22:58: Specimen Source Left radial, O2 % 100% nrb, ABG pH 7.27 L, ABG pCO2 50.9 H, ABG pO2 92.4, ABG HCO3 22.7, ABG Total CO2 24.3, ABG O2 Saturation 96, ABG Base Excess -4.2 L, Timo Test Acceptable 03/21/19 23:11: Sodium 132 L, Potassium 4.0, Chloride 96 L, Carbon Dioxide 27, Anion Gap 13.0, BUN 20 H, Creatinine 1.29, Estimated Creat Clear 66, Estimated GFR 58 L, Est GFR ( Amer) 70, Glucose 460 H*, Calcium 9.2, Troponin I 0.85 H 03/21/19 23:11: WBC 10.4, RBC 5.15, Hgb 14.5, Hct 46.9, MCV 91.1, MCH 28.3, MCHC 31.0 L, RDW 14.4, Plt Count 366, MPV 8.1, Neut % (Auto) 51.4, Lymph % (Auto) 32.8, [place] % (Auto) 4.9, Eos % (Auto) 9.9, Baso % (Auto) 1.1, Neut # (Auto) 5.3, Lymph # (Auto) 3.4, [place] # (Auto) 0.5, Eos # (Auto) 1.0 H, Baso # (Auto) 0.1 03/21/19 23:11: Lactate 2.1 H 03/21/19 23:15: Urine Color Yellow, Urine Appearance Clear, Urine pH 6.5, Ur Specific [place] <= 1.005, Urine Protein Negative, Urine Glucose (UA) 3+, Urine Ketones Negative, Urine Blood Negative, Urine Nitrate Negative, Urine Bilirubin Negative, Urine Urobilinogen 0.2, Ur Leukocyte Esterase Negative, Urine WBC Occasional, Urine Bacteria Trace 03/21/19 23:15: B-Natriuretic Peptide 749 H 03/21/19 23:15: D-Dimer 1660 H* 03/22/19 00:00: Acetone Level None detected 03/22/19 03:20: Lactate 2.6 H 03/22/19 05:35: Troponin I 1.38 H 03/22/19 05:35: WBC 8.1, RBC 4.41 L, Hgb 12.3 L D, Hct 39.1 L, MCV 88.5, MCH 27.8, MCHC 31.4 L, RDW 14.5, Plt Count 272 D, MPV 8.2, Neut % (Auto) 87.0 H, Lymph % (Auto) 8.8 L, [place] % (Auto) 3.4, Eos % (Auto) 0.3, Baso % (Auto) 0.4, Neut # (Auto) 7.1, Lymph # (Auto) 0.7, [place] # (Auto) 0.3, Eos # (Auto) 0.0, Baso # (Auto) 0.0, Total Counted 100, Neutrophils % (Manual) 92 H, Lymphocytes % (Manual) 4 L, Monocytes % (Manual) 3, Metamyelocytes % 1.0, Platelet Estimate Normal, RBC Morphology Normal 03/22/19 05:35: Sodium 133 L, Potassium 3.7, Chloride 97 L, Carbon Dioxide 26, Anion Gap 13.7, BUN 26 H D, Creatinine 1.12, Estimated Creat Clear 77, Estimated GFR 68, Est GFR ( Amer) 82, Glucose 411 H*, Calcium 8.7 03/22/19 05:35: Lactate 1.5 03/22/19 05:47: POC Glucose 406 H* I & O for Last 24 hours: Intake & Output 03/19/19 03/20/19 03/21/19 03/22/19 23:59 23:59 23:59 23:59 Intake Total 492.55 / 492.55 Output Total 650 / 650 3750 / 3750 Balance -650 / -650 -3257.45 / -3257.45 Weight 73.482 kg 73.709 kg - *Routine HEENT Exam Head: Present: normocephalic, atraumatic Eye: Present: EOMI, PERRL ENT: Present: mucous membranes moist - *Routine Neck Exam Present: supple Comments: Healing scar from left carotid endarterectomy - Routine Chest/Breast/Axilla Exam Comments: Healing sternotomy scar with resolving infection and distal portion. Nontender chest - *Routine Respiratory Exam Absent: accessory muscle use Comments: Good air movement bilaterally, fine crackles bilateral lower lung frias on the back. No rhonchi or wheeze - *Routine Cardiovascular Exam Present: RRR, Normal S1 - *Routine Abdominal Exam Present: soft, normoactive bowel sounds - *Routine Rectal Exam Patient deferred: visual exam - *Routine Exam Patient deferred: penile exam - *Routine Extremities Exam Absent: cyanosis, clubbing, edema, palpable cord - *Routine Skin Exam Present: intact. Absent: cyanosis - *Routine Neurological Exam Present: alert, oriented X3 Assessment and Plan (1) ASCVD (arteriosclerotic cardiovascular disease) Current visit: Yes Status: Chronic Category: Medical Code(s): I25.10 - Atherosclerotic heart disease of [place] coronary artery without angina pectoris (2) Acute respiratory failure with hypoxia Current visit: Yes Status: Acute Category: Medical Code(s): J96.01 - Acute respiratory failure with hypoxia (3) Elevated troponin I level Current visit: Yes Status: Acute Category: Medical Code(s): R74.8 - Abnormal levels of other serum enzymes (4) Flash pulmonary edema Current visit: Yes Status: Acute Category: Medical Code(s): J81.0 - Acute pulmonary edema (5) Non-STEMI (non-ST elevated myocardial infarction) Current visit: Yes Status: Acute Category: Medical Code(s): I21.4 - Non-ST elevation (NSTEMI) myocardial infarction (6) S/P CABG x 2 Current visit: No Status: Chronic Category: Surgical Code(s): Z95.1 - Presence of aortocoronary bypass graft (7) Congestive heart failure Current visit: No Status: Chronic Qualifiers: Heart failure type: unspecified Heart failure chronicity: acute on chronic Qualified Code(s): I50.9 - Heart failure, unspecified Category: Medical Code(s): I50.9 - Heart failure, unspecified (8) Diabetes mellitus Current visit: No Status: Chronic Qualifiers: Diabetes mellitus type: type 2 Diabetes mellitus bed bug exterminator insulin use: without bed bug exterminator use Diabetes mellitus complication status: with unspecified complications Qualified Code(s): E11.8 - Type 2 diabetes mellitus with unspecified complications Category: Medical Code(s): E11.9 - Type 2 diabetes mellitus without complications (9) Hyperlipidemia Current visit: No Status: Chronic Qualifiers: Hyperlipidemia type: other hyperlipidemia Qualified Code(s): E78.49 - Other hyperlipidemia; E78.4 - Other hyperlipidemia Category: Medical Code(s): E78.5 - Hyperlipidemia, unspecified (10) Hypertensive heart disease Current visit: No Status: Chronic Qualifiers: Heart failure presence: with heart failure Heart failure type: systolic Heart failure chronicity: chronic Qualified Code(s): I11.0 - Hypertensive heart disease with heart failure; I50.22 - Chronic systolic (congestive) heart failure Category: Medical Code(s): I11.9 - Hypertensive heart disease without heart failure (11) Renal insufficiency Current visit: No Status: Chronic Category: Medical Code(s): N28.9 - Disorder of kidney and ureter, unspecified - Assessment and plan all Dx Assessment and Plan for all problems:: Mr. Tavera is a 58-year-old male with complex cardiovascular history, uncontrolled diabetes, and acute hypoxic respiratory failure who presented with findings concerning for flash pulmonary edema. Improvement overnight with nitroglycerin drip. Cardiology consulted, appreciate recommendations. At this time we are increasing the patient's carvedilol, scheduling Lasix throughout the day to increase diuresis, and increasing insulin regimen to achieve better glucose control. Patient's condition is tenuous, clinically guarded. Continues to require inpatient management. Echocardiogram pending. -Stable for transition to acute care level.
--- NOTE | 2019-03-22 11:30 | Consult Report ---
History of Present Illness Consult date: 03/22/19 Requesting physician: Basil Sebastian Consult reason: shortness of breath Chief complaint: Shortness of breath and edema Additional Medical History:: 1. Non-STEMI (03/21/18) a. Troponins elevated. b. CABG in 12/24/18. 2. Dyspnea (03/21/19) a. Increase shortness of breath for the past 24 hours. 3. Congestive Heart failure a. Pedal edema noted bilaterally. 4. Cardiomyopathy a. Echocardiogram (12/22/2018) EF 15-20% 5. Hypertensive heart disease with Chronic Systolic heart failure 6. Peripheral Artery disease a. Stent (03/2018) 7. Coronary Artery Disease a. CABG (12/24/2018) Ndiaye and LAD b. HEMANTH in 02/2018 8. Carotid Artery [place] a. Left CEA in 02/2019 (Dr. Damian) 9. Diabetes a. Type 2 Insulin dependent. b. Uncontrolled 10. Hyperlipidemia a. No recent LDL. b. Pt is on a statin. History of present illness: 58 year old male admitted to ICU for Non-STEMI and acute respiratory failure with hypoxia. Pt stated he began having increase shortness of breath with swelling of the lower extremities for the past few days. Stated difficulty in walking and performing ADLs due to the increase shortness of breath. Pt d enies chest pain, tightness or pressure. Pt denies palpitations or dizziness. Pt is s/p CABG x 2 vessels (NDIAYE and LAD) on 12/24/18. Pt is s/p Left CEA 2 weeks ago. L CEA incision healing with no redness or drainage noted. Pedal edema +1 noted bilaterally. Pt stated his swelling has decreased after receiving Lasix in the ED. Urine out put noted over 3000mls. Pt stated the shortness of breath is improving this morning. Pt does have Oxygen at 2 liters via NC. Vanessa cath in place and draining dark yellow urine approx 2000ml noted in drainage system. Lung sounds clear. No respiratory distress noted. Echocardiogram performed on 01/01 revealed EF of 15-20%. Prelinary Echo (03/22/19) revealed EF 30%. Due to pt having CABG on 01/01, need to repeat Echocardiogram after 03/23/19 to determine if pt will need BIV placement for ischemic cardiomyopathy. VS stable. Pt noted on a Nitroglycerin drip. Blood pressure 146/81. Will stop the NTG drip at this time due to hypertension. Pt does have history of Diabetes (Type 2 Insulin dependent). Uncontrolled at this time. History of PAD with HEMANTH in 02/2018. Initial cardiac workup was performed in the ED upon arrival. Troponins were noted as elevated due to recent CABG. D-Dimer elevated. Creatinine 1.12. BNP 749. Glucose was elevated at 411. EKG revealed Sinus tachycardia with premature atrial complexes, ST & T wave abnormality with heart rate of 117 bpm. Chest CTA revealed: 1. Patchy groundglass opacities in both lungs most pronounced in the lower lobes with interlobular septal thickening and small bilateral pleural effusions consistent with congestive heart failure with pulmonary edema. 2. No evidence of pulmonary embolus Discussed plan of care with Dr. De La Cruz. Discussed with pt the recommendations. Pt verbalized understanding. Recommend: 1. Discontinue Nitroglycerin drip due to hypertension. 2. Increase Coreg to 12.5mg BID 3. Start Lasix 40mg IV every 8 hours for CHF. 4. Repeat Echocardiogram in 3 days (03/25/19) to evaluate EF. Depending on EF, Pt may benefit from BIV placement. 5. BMP and BNP in am. Thank you in letting Cardiology participate in the care of your pt. [facility] History Medical History: Reports:: Congestive Heart Failure, Coronary Artery Disease, Diabetes Mellitus Type 2, Hyperlipidemia, Hypertension, Myocardial Infarction Denies:: Cancer, Diabetes Mellitus Type 1, Internal Pacemaker, Lung Disease, MRSA, Seizures *Have you ever received a pneumonia vaccine?: Yes *Have you received a flu vaccine this season?: Yes Other Medical History: Reports: Arthritis, Glaucoma Other Surgeries: Yes: CABG, Cardiac Catheterization, Coronary Stent, Hernia Repair, Open Heart Surgery, Other (cadaver L foot, carotid.). No: Pacemaker Amputation: No Fractures: No - *Social History Educational Level: Completed GED/General Educational Development Smoking Status: Current some day smoker Tobacco Type: cigarettes # Packs/Day (cigarettes): 2 #Yrs smoked (if former smoker): 40 Alcohol Intake: never Alcohol Intake Frequency:: other Substance Use Type: denies use *Occupational Status:: employed Housing: house Household Members: spouse, children *Travel in the last 8 weeks: None - Psychiatric History Expresses thoughts of harming self/others: None Suicide Plan Description: No Plan Family Hx:: Coronary Artery Disease, Diabetes, Heart Attack, Hyperlipidemia, Hypertension Meds Home Medications Medication Instructions Recorded Confirmed Type atorvastatin 80 mg tablet 80 mg PO HS 12/11/17 03/22/19 History dapagliflozin 10 mg tablet 10 mg PO DAILY 12/11/17 03/22/19 History metformin 1,000 mg tablet 1,000 mg PO BID 12/11/17 03/22/19 History furosemide 40 mg tablet 40 mg PO DAILY PRN 07/24/18 03/22/19 History gabapentin 100 mg capsule 200 mg PO HS cap 07/24/18 03/22/19 History nitroglycerin 0.4 mg sublingual 0.4 mg SUBLINGUAL Q5M PRN #30 tab 10/23/18 03/22/19 Rx tablet aspirin 81 mg tablet,delayed 81 mg PO DAILY 01/07/19 03/22/19 History release carvedilol 6.25 mg tablet 6.25 mg PO BID 01/07/19 03/22/19 History clopidogrel 75 mg tablet 75 mg PO DAILY 01/07/19 03/22/19 History dulaglutide 1.5 mg/0.5 mL 1.5 mg SQ QWEEK 01/07/19 03/22/19 History subcutaneous pen injector insulin aspart prot-aspart 100 27 unit SQ BID 01/07/19 03/22/19 History unit/mL (70-30) subcutaneous cartridge Acetaminophen [Tylenol 325mg 325 mg PO Q4H PRN 03/22/19 03/22/19 History Tablet] Lisinopril [Lisinopril 5mg Tablet] 5 mg PO DAILY 03/22/19 03/22/19 History Allergies Allergy/AdvReac Type Severity Reaction Status Date / Time No Known Allergies Allergy Verified 03/22/19 03:11 Review of Systems - Review of Systems Review of systems:: pertinent systems reviewed and negative unless documented below - Constitutional Reports lack of energy, Reports weakness - *Cardiovascular Reports shortness of breath, Reports shortness of breath with activity, Reports leg swelling, Reports foot swelling, Reports fast heart rate, Denies chest pain - *Respiratory Reports shortness of breath, Reports shortness of breath with activity, Denies cough, Denies stridor, Denies wheezing - *Gastrointestinal Denies abdominal pain, Denies bloating - *Musculoskeletal Reports muscle weakness, Denies abnormal walking - *Neurologic Reports weakness, Denies dizziness - Psychiatric Denies thoughts of hurting/killing others, Denies thoughts of hurting/killing yourself, Denies seeing things others do not see Exam Vital signs and Labs for Last 24 Hours: Temp Pulse Resp BP Pulse Ox 98.0 F 102 H 15 152/83 H 96 03/22/19 11:12 03/22/19 11:12 03/22/19 11:12 03/22/19 11:12 03/22/19 11:12 Laboratory Results - last 24 hr 03/21/19 22:58: Specimen Source Left radial, O2 % 100% nrb, ABG pH 7.27 L, ABG pCO2 50.9 H, ABG pO2 92.4, ABG HCO3 22.7, ABG Total CO2 24.3, ABG O2 Saturation 96, ABG Base Excess -4.2 L, Timo Test Acceptable 03/21/19 23:11: Sodium 132 L, Potassium 4.0, Chloride 96 L, Carbon Dioxide 27, Anion Gap 13.0, BUN 20 H, Creatinine 1.29, Estimated Creat Clear 66, Estimated GFR 58 L, Est GFR ( Amer) 70, Glucose 460 H*, Calcium 9.2, Troponin I 0.85 H 03/21/19 23:11: WBC 10.4, RBC 5.15, Hgb 14.5, Hct 46.9, MCV 91.1, MCH 28.3, MCHC 31.0 L, RDW 14.4, Plt Count 366, MPV 8.1, Neut % (Auto) 51.4, Lymph % (Auto) 32.8, [place] % (Auto) 4.9, Eos % (Auto) 9.9, Baso % (Auto) 1.1, Neut # (Auto) 5.3, Lymph # (Auto) 3.4, [place] # (Auto) 0.5, Eos # (Auto) 1.0 H, Baso # (Auto) 0.1 03/21/19 23:11: Lactate 2.1 H 03/21/19 23:15: Urine Color Yellow, Urine Appearance Clear, Urine pH 6.5, Ur Specific [place] <= 1.005, Urine Protein Negative, Urine Glucose (UA) 3+, Urine Ketones Negative, Urine Blood Negative, Urine Nitrate Negative, Urine Bilirubin Negative, Urine Urobilinogen 0.2, Ur Leukocyte Esterase Negative, Urine WBC Occasional, Urine Bacteria Trace 03/21/19 23:15: B-Natriuretic Peptide 749 H 03/21/19 23:15: D-Dimer 1660 H* 03/22/19 00:00: Acetone Level None detected 03/22/19 03:20: Lactate 2.6 H 03/22/19 05:35: Troponin I 1.38 H 03/22/19 05:35: WBC 8.1, RBC 4.41 L, Hgb 12.3 L D, Hct 39.1 L, MCV 88.5, MCH 27.8, MCHC 31.4 L, RDW 14.5, Plt Count 272 D, MPV 8.2, Neut % (Auto) 87.0 H, Lymph % (Auto) 8.8 L, [place] % (Auto) 3.4, Eos % (Auto) 0.3, Baso % (Auto) 0.4, Neut # (Auto) 7.1, Lymph # (Auto) 0.7, [place] # (Auto) 0.3, Eos # (Auto) 0.0, Baso # (Auto) 0.0, Total Counted 100, Neutrophils % (Manual) 92 H, Lymphocytes % (Manual) 4 L, Monocytes % (Manual) 3, Metamyelocytes % 1.0, Platelet Estimate Normal, RBC Morphology Normal 03/22/19 05:35: Sodium 133 L, Potassium 3.7, Chloride 97 L, Carbon Dioxide 26, Anion Gap 13.7, BUN 26 H D, Creatinine 1.12, Estimated Creat Clear 77, Estimated GFR 68, Est GFR ( Amer) 82, Glucose 411 H*, Calcium 8.7 03/22/19 05:35: Lactate 1.5 03/22/19 05:47: POC Glucose 406 H* I & O for Last 24 hours: Intake & Output 03/19/19 03/20/19 03/21/19 03/22/19 23:59 23:59 23:59 23:59 Intake Total 492.55 / 492.55 Output Total 650 / 650 3750 / 3750 Balance -650 / -650 -3257.45 / -3257.45 Weight 162 lb 162 lb 8 oz - Constitutional mild distress, average body habitus, cooperative - *Routine HEENT Exam Head: Present: normocephalic ENT: Present: mucous membranes moist - *Routine Neck Exam Present: supple, full ROM, normal carotid upstroke. Absent: JVD, lymphadenopathy Comments: Left and right Carotid bruits noted. - *Routine Respiratory Exam Present: accessory muscle use, CTA bilaterally. Absent: respiratory distress, wheezes, crackles - *Routine Cardiovascular Exam Present: RRR, Normal S1, Normal S2, tachycardia. Absent: murmur, gallop, rubs, click, JVD - *Routine Abdominal Exam Present: soft, normoactive bowel sounds - *Routine Extremities Exam Present: edema, full ROM, pulses intact, normal capillary refill. Absent: cyanosis, clubbing - *Routine Skin Exam Present: intact, dry, warm. Absent: cyanosis, erythema Comments: Incision of the Left CEA noted. No redness or drainage noted from the site. - *Routine Neurological Exam Present: alert, oriented X3, CN II-XII intact, moving all extremities - Routine Psychiatric Exam Present: normal affect, normal thought process, cooperative Assessment and Plan (1) ASCVD (arteriosclerotic cardiovascular disease) Current visit: Yes Status: Chronic Category: Medical Code(s): I25.10 - Atherosclerotic heart disease of [place] coronary artery without angina pectoris (2) Acute respiratory failure with hypoxia Current visit: Yes Status: Acute Category: Medical Code(s): J96.01 - Acute respiratory failure with hypoxia (3) Elevated troponin I level Current visit: Yes Status: Acute Category: Medical Code(s): R74.8 - Abnormal levels of other serum enzymes (4) Flash pulmonary edema Current visit: Yes Status: Acute Category: Medical Code(s): J81.0 - Acute pulmonary edema (5) Non-STEMI (non-ST elevated myocardial infarction) Current visit: Yes Status: Acute Category: Medical Code(s): I21.4 - Non-ST elevation (NSTEMI) myocardial infarction (6) S/P CABG x 2 Current visit: No Status: Chronic Category: Surgical Code(s): Z95.1 - Presence of aortocoronary bypass graft (7) Congestive heart failure Current visit: No Status: Chronic Qualifiers: Heart failure type: unspecified Heart failure chronicity: acute on chronic Qualified Code(s): I50.9 - Heart failure, unspecified Category: Medical Code(s): I50.9 - Heart failure, unspecified (8) Diabetes mellitus Current visit: No Status: Chronic Qualifiers: Diabetes mellitus type: type 2 Diabetes mellitus fci insulin use: without extermination supervisor use Diabetes mellitus complication status: with unspecified complications Qualified Code(s): E11.8 - Type 2 diabetes mellitus with unspecified complications Category: Medical Code(s): E11.9 - Type 2 diabetes mellitus without complications (9) Hyperlipidemia Current visit: No Status: Chronic Qualifiers: Hyperlipidemia type: other hyperlipidemia Qualified Code(s): E78.49 - Other hyperlipidemia; E78.4 - Other hyperlipidemia Category: Medical Code(s): E78.5 - Hyperlipidemia, unspecified (10) Hypertensive heart disease Current visit: No Status: Chronic Qualifiers: Heart failure presence: with heart failure Heart failure type: systolic Heart failure chronicity: chronic Qualified Code(s): I11.0 - Hypertensive heart disease with heart failure; I50.22 - Chronic systolic (congestive) heart failure Category: Medical Code(s): I11.9 - Hypertensive heart disease without heart failure (11) Renal insufficiency Current visit: No Status: Chronic Category: Medical Code(s): N28.9 - Disorder of kidney and ureter, unspecified - Assessment and plan all Dx Assessment and Plan for all problems:: Plan: 1. Discontinue Nitroglycerin drip due to hypertension. 2. Increase Coreg to 12.5mg BID for better Heart rate control. 3. Start Lasix 40mg IVP every 8 hours for CHF. 4. Repeat Echocardiogram in 3 days (03/25/19) to evaluate EF. Depending on EF, pt may benefit from BIV placement. 5. BMP and BNP in AM to assess renal function and electrolyte status. 6. Please notify Cardiology if pt's condition changes or becomes worse.
--- NOTE | 2019-03-22 14:08 | Cardiology Report ---
PROCEDURE: 2-D M-mode and color Doppler study INDICATIONS FOR THE TEST: Chest pain COPD Heart Murmur Tobacco Smokingex Palpitations Fatigue Syncope Edema Hypertension+Diabetes Mellitus+ Rheumatic Fever SOB+AGUERO+Obesity Hyperlipidemia+ Family History HD Additional History nonstemi, CABG 12/2018, Hx of AK, stents PATIENT INFORMATION HEIGHT: 67 WEIGHT: 162 GENDER: Male B/P: 156/90 2-D/M-MODE INTERPRETATION: 2-D MEASUREMENTS OBSERVED VALUES IN CMS Right Ventricular Dimension (RVDd) 2.3 Interventricular Septum (Thickness)(IVsd) 1.0 Left Ventricular Internal Dimensions(LVIDd) 6.2 Left Ventricular Posterior Wall (Thickness)(LVPWd) 1.0 Aortic Root 3.1 Aortic Cusp Separation 2.1 Left Atrial Dimensions (LAD) 4.9 2D 1. Left atrium is mildly enlarged, left ventricle is mildly dilated, there is severely reduced left ventricular systolic function, visually estimated ejection fraction approximately 25-30%, there is marked hypo to akinesis involving the basal septum, mid to distal septum, anterior, anterior apical wall, inferior and apical zapata. 2. The right atrium and right ventricle are normal size and contractility. 3. The aortic valve is thickened and calcified leaflet continue to display mobility. 4. The mitral and tricuspid valve leaflets are minimally thickened 5. The pulmonic valve is poorly visualized. 6. No significant pericardial effusion noted. DOPPLER INTERROGATION: Doppler interrogation of the aortic, mitral and tricuspid valvular presence of mild mitral and tricuspid regurgitation, tricuspid regurgitation jet velocity is inadequate for calculation of the right ventricular systolic pressure, diastolic parameters are inconclusive, inferior vena cava is normal size with normal inspiratory collapse. CONCLUSION: 1. Mildly enlarged left atrium, mildly dilated left ventricle, severely reduced left ventricular systolic function, visually estimated ejection fraction 25-30%, with multiple segmental wall motion abnormality described above, diastolic parameters are inconclusive. 2. Mild mitral and tricuspid regurgitation 3. No significant pericardial effusion noted.
[2019-03-23 07:39] LABS: Anion Gap 11.5 mEq/L (5-15); Calcium 8.6 mg/dL (8.5-10.1); Potassium 3.5 mmoL/L (3.5-5.1)
--- NOTE | 2019-03-23 09:04 | Discharge Summary ---
General - General Admission date:: 03/22/19 Discharge date: 03/23/19 HPI HPI: Mr. Tavera is a 58-year-old male with known cardiovascular disease, status post stenting >1 year ago, severe diabetes which is poorly controlled, hyperlipidemia, and CABG in December who presented to the ER yesterday with chest pressure and shortness of breath. Patient states last night when he laid down for bed he became short of breath and developed a cough. Took his Lasix with no improvement so he came to the ER. Noted at that time to be hypoxic with findings on imaging of bilateral groundglass opacification/airspace disease concerning for flash pulmonary edema. Additionally he complains of fever, improving infection at the most distal portion of his sternotomy scar. Denies any rash, nausea vomiting, lower extremity edema. He was initiated on nitrogl ycerin drip and oxygen. Given diuretics with significant diuresis of greater than 2-1/2 L overnight. Cardiology was consulted to assist with patient's care. On interview this morning, patient has no complaints. States his breathing is about the same may be a little better. Has a Vanessa catheter in place to monitor adequate output. Nitroglycerin drip has been turned off with improvement in his blood pressure and heart rate. Hospital Course Hospital Course: Patient was admitted, intensive intravenous diuresis was undertaken and patient responded well with approximately 8 L of fluid off and a 4 pound weight loss. Echocardiogram was done which showed somewhat conflicting reports with 2D imaging showing ejection fraction 25 to 30% and other view showing 40 to 45% ejection fraction. Patient's BNP was very elevated on admission, responded well to diuresis and this morning is down in the 300 range. Creatinine responded very nicely to intravenous diuresis and has normalized this morning. Patient himself also has improved, O2 saturations on room air now 98%, denies shortness of air or leg swelling. Plan to be to discharge patient this morning on twice daily scheduled daily Lasix along with doubled carvedilol. He will come back to cardiology clinic on Monday for repeat echocardiogram, and discussion in regards to defibrillator placement versus cardio Mem device. Have instructed him that if he begins to have worsening shortness of air or leg swelling he should come back to the ER over the weekend. Objective Vital signs: Temp Pulse Resp BP Pulse Ox 97.5 F L 81 18 107/63 L 99 03/23/19 08:00 03/23/19 08:00 03/23/19 08:00 03/23/19 08:00 03/23/19 08:00 Narrative: Alert, pleasant, oriented x3. Heart rate regular. Abdomen soft. Lungs have good air movement bilaterally. No edema or clubbing noted. Neurologic exam intact. Oropharynx clear, no JVD this morning Results Labs on day of discharge: Labs from last 24 hours 03/23/19 03/23/19 03/23/19 06:32 06:18 06:18 Sodium 135 L Potassium 3.5 Chloride 100 Carbon Dioxide 27 Anion Gap 11.5 BUN 28 H Creatinine 0.99 Estimated Creat Clear 88 Estimated GFR 78 Est GFR ( Amer) 95 Glucose 169 H POC Glucose 168 H Calcium 8.6 Troponin I B-Natriuretic Peptide 367 H 03/22/19 03/22/19 03/22/19 21:44 17:00 11:55 Sodium Potassium Chloride Carbon Dioxide Anion Gap BUN Creatinine Estimated Creat Clear Estimated GFR Est GFR ( Amer) Glucose POC Glucose 260 H 213 H Calcium Troponin I 1.74 H B-Natriuretic Peptide 03/22/19 11:03 Sodium Potassium Chloride Carbon Dioxide Anion Gap BUN Creatinine Estimated Creat Clear Estimated GFR Est GFR ( Amer) Glucose POC Glucose 315 H* Calcium Troponin I B-Natriuretic Peptide DS: Diagnosis - Discharge Diagnosis (1) ASCVD (arteriosclerotic cardiovascular disease) Status: Chronic (2) Acute respiratory failure with hypoxia Status: Resolved (3) Elevated troponin I level Status: Resolved (4) Flash pulmonary edema Status: Resolved (5) Non-STEMI (non-ST elevated myocardial infarction) Status: Resolved (6) S/P CABG x 2 Status: Chronic (7) Congestive heart failure Status: Chronic (8) Diabetes mellitus Status: Chronic (9) Hyperlipidemia Status: Chronic (10) Hypertensive heart disease Status: Chronic (11) Renal insufficiency Status: Chronic Discharge Plan - Patient Discharge Instructions ACTIVITY: Continue current activity DIET: continue same diet, low salt diet - Follow up Plan Follow up with: Fabian De La Cruz MD [Staff Physician] - 03/25/19 Disposition: Home, Self-Longterm Medications: Home Medications Medication Instructions Recorded Confirmed Type atorvastatin 80 mg tablet 80 mg PO HS 12/11/17 03/22/19 History dapagliflozin 10 mg tablet 10 mg PO DAILY 12/11/17 03/22/19 History metformin 1,000 mg tablet 1,000 mg PO BID 12/11/17 03/22/19 History gabapentin 100 mg capsule 200 mg PO HS cap 07/24/18 03/22/19 History nitroglycerin 0.4 mg sublingual 0.4 mg SUBLINGUAL Q5M PRN #30 tab 10/23/18 03/22/19 Rx tablet clopidogrel 75 mg tablet 75 mg PO DAILY 01/07/19 03/22/19 History dulaglutide 1.5 mg/0.5 mL 1.5 mg SQ QWEEK 01/07/19 03/22/19 History subcutaneous pen injector insulin aspart prot-aspart 100 22 unit SQ BID 01/07/19 03/22/19 History unit/mL (70-30) subcutaneous cartridge Acetaminophen [Tylenol 325mg 325 mg PO Q4H PRN 03/22/19 03/22/19 History Tablet] Aspirin [Aspirin 325mg Tab] 325 mg PO DAILY 03/22/19 03/22/19 History Lisinopril [Lisinopril 5mg Tablet] 5 mg PO DAILY 03/22/19 03/22/19 History Sennosides/Docusate Sodium 2 each PO BID 03/22/19 03/22/19 History [Docusate Sodium-Senna Tablet] raNITIdine HCl [Ranitidine HCl] 150 mg PO BIDP PRN 03/22/19 03/22/19 History Carvedilol [Carvedilol 6.25mg Tab] 12.5 mg PO BID 30 Days tab 03/23/19 Rx Furosemide [Furosemide 40MG tAB] 40 mg PO BID #60 tab 03/23/19 Rx Prescriptions/Medication Reconciliation: Continued atorvastatin 80 mg tablet 80 mg PO HS metformin 1,000 mg tablet 1,000 mg PO BID gabapentin 100 mg capsule 200 mg PO HS cap clopidogrel 75 mg tablet 75 mg PO DAILY dulaglutide 1.5 mg/0.5 mL subcutaneous pen injector 1.5 mg SQ QWEEK dapagliflozin 10 mg tablet 10 mg PO DAILY nitroglycerin 0.4 mg sublingual tablet 0.4 mg SUBLINGUAL Q5M PRN #30 tab PRN Reason: Chest Pain insulin aspart prot-aspart 100 unit/mL (70-30) subcutaneous cartridge 22 unit SQ BID Lisinopril [Lisinopril 5mg Tablet] 5 mg PO DAILY Aspirin [Aspirin 325mg Tab] 325 mg PO DAILY Acetaminophen [Tylenol 325mg Tablet] 325 mg PO Q4H PRN PRN Reason: As Needed For Fever Or Pain raNITIdine HCl [Ranitidine HCl] 150 mg PO BIDP PRN PRN Reason: Acid Reflux Sennosides/Docusate Sodium [Docusate Sodium-Senna Tablet] 2 each PO BID Changed Carvedilol [Carvedilol 6.25mg Tab] 12.5 mg PO BID 30 Days tab Furosemide [Furosemide 40MG tAB] 40 mg PO BID #60 tab
== END 2019-03-23 09:56 | disposition home or self-care (01) | DRG 280 ==
LOC: ER 22:49 → ICU 03-22 02:21 → 2ND 03-22 12:52
PROVIDERS: ADMIT Family Medicine; ATTEND Internal Medicine Adolescent Medicine
CPT/HCPCS: Q9967

== ENCOUNTER → 2019-03-27 08:03 | Outpatient (CLI) | payer BC, SELFPAY ==
--- NOTE | 2019-03-27 08:05 | CA_ITS ---
PROCEDURE: Limited study performed. INDICATIONS FOR THE TEST: Chest pain COPD Heart Murmur Tobacco Smoking Palpitations Fatigue Syncope Edema Hypertension+Diabetes Mellitus+ Rheumatic Fever SOB+AGUERO Obesity Hyperlipidemia+ Family History HD Additional History EF CHECK FOR PACER PLACEMENT, CABG 12/2018, IN, STENTS, ECHO 03/22/19 25-30% PATIENT INFORMATION HEIGHT: 67 WEIGHT:162 GENDER: Male B/P: 2-D/M-MODE INTERPRETATION: 2-D MEASUREMENTS OBSERVED VALUES IN CMS Right Ventricular Dimension (RVDd) 3.1 Interventricular Septum (Thickness)(IVsd) 1.3 Left Ventricular Internal Dimensions(LVIDd) 6.2 Left Ventricular Posterior Wall (Thickness)(LVPWd) 0.8 Aortic Root Aortic Cusp Separation Left Atrial Dimensions (LAD) 2D 1. Left Atrium is mildly enlarged, left ventricle is mildly dilated, mild concentric left ventricular hypertrophy, severely reduced left ventricular systolic function, visually estimated ejection fraction approximately 25-30%, there is marked hypo to akinesis involving mid to distal septum, anterior, anterior anteroapical, apical wall. 2. The right atrium and right ventricle are normal size and contractility. 3. The aortic valve is minimally thickened and fibrosed. 4. The mitral and tricuspid valve are grossly normal. 5. The pulmonic valve is poorly visualized. 6. No significant pericardial effusion noted. DOPPLER INTERROGATION: No Doppler performed CONCLUSION: 1. Mildly enlarged left atrium, mildly dilated left ventricle, mild concentric left ventricular hypertrophy, severely reduced left ventricular systolic function, visually estimated ejection fraction 25-30% with multiple segmental wall motion abnormality described above. 2. No significant pericardial effusion noted.
== END ==
PROVIDERS: PCP Internal Medicine Adolescent Medicine; Visit Provider Internal Medicine
DX: I73.9 Peripheral vascular disease, unspecified (principal); E11.40 Type 2 diabetes mellitus with diabetic neuropathy, unspecified; E66.3 Overweight; Z79.4 Long term (current) use of insulin; Z98.890 Other specified postprocedural states
CPT/HCPCS: 93308

== ENCOUNTER → 2019-09-21 10:32 | Outpatient (CLI) | payer MEDICARE, SELFPAY ==
[2019-09-21 13:17] LABS: Alanine Aminotransferase 65 U/L (12-78); Albumin Level 3.2 gm/dL (3.4-5.0); Albumin/Globulin Ratio 0.8 (1.1-1.8); Alkaline Phosphatase 384 U/L (46-116); Anion Gap 17.5 mEq/L (5-15); Aspartate Amino Transferase 42 U/L (15-37); Bilirubin,Total 0.9 mg/dL (0.2-1.0); Blood Urea Nitrogen 13 mg/dL (7-18); Calcium 9.3 mg/dL (8.5-10.1); Carbon Dioxide 23 mmol/L (21.0-32.0); Chloride 93 mmol/L (98-107); Creatinine,Serum 0.68 mg/dL (0.70-1.30); Estimated Glomerular Filt Rate 120 ml/min (>60); GFR (African American) 145 ML/MIN (>60); Globulin 4.1 gm/dl (1.3-3.2); Glucose 203 mg/dL (74-106); Potassium 4.5 mmoL/L (3.5-5.1); Sodium 129 mmol/L (136-145); Total Protein,Serum 7.3 gm/dL (6.4-8.2)
== END ==
PROVIDERS: Visit Provider Internal Medicine Adolescent Medicine
DX: R74.8 Abnormal levels of other serum enzymes (principal)
CPT/HCPCS: 36415; 80053

== ENCOUNTER → 2019-09-25 12:08 | Outpatient (CLI) | payer MEDICARE, SELFPAY ==
[2019-09-25 12:44] LABS: Alanine Aminotransferase 55 U/L (12-78); Albumin Level 2.8 gm/dL (3.4-5.0); Albumin/Globulin Ratio 0.6 (1.1-1.8); Amylase 9 U/L (25-115); Anion Gap 13.6 mEq/L (5-15); Aspartate Amino Transferase 41 U/L (15-37); Bilirubin,Total 0.7 mg/dL (0.2-1.0); Blood Urea Nitrogen 12 mg/dL (7-18); Calcium 9.4 mg/dL (8.5-10.1); Carbon Dioxide 25 mmol/L (21.0-32.0); Chloride 94 mmol/L (98-107); Creatinine,Serum 0.73 mg/dL (0.70-1.30); Estimated Glomerular Filt Rate 111 ml/min (>60); GFR (African American) 134 ML/MIN (>60); Globulin 4.4 gm/dl (1.3-3.2); Glucose 77 mg/dL (74-106); Lipase 54 u/L (73-393); Potassium 3.6 mmoL/L (3.5-5.1); Sodium 129 mmol/L (136-145); Total Protein,Serum 7.2 gm/dL (6.4-8.2)
[2019-09-25 12:52] LABS: Basophils % 0.5 % (0.1-2.0); Eosinophils # 0.1 K/mm3 (0.0-0.4); Eosinophils % 1.4 % (0.1-12.0); Hematocrit 40.8 % (42.0-52.0); Hemoglobin 13.2 g/dL (14.1-18.0); Lymphocytes # 1.1 K/mm3 (0.7-4.5); Lymphocytes % 11.9 % (10-50); Mean Corpuscular HGB Conc 32.3 g/dL (31.8-35.4); Mean Corpuscular Hemoglobin 29.8 pg (27.0-31.2); Mean Corpuscular Volume 92.4 fl (80-94); Mean Platelet Volume 8.9 fl (7.4-10.4); Monocytes # 0.6 K/mm3 (0.1-1.0); Monocytes % 6.3 % (1.7-9.3); Neutrophils # 7.1 K/mm3 (1.8-7.8); Neutrophils % 79.8 % (37.0-80.0); Platelet Count 221 K/mm3 (142-424); Red Blood Count 4.42 M/mm3 (4.60-6.20); Red Cell Distribution Width 18.1 % (11.5-17.5); White Blood Count 8.9 K/mm3 (4.8-10.8)
[2019-09-25 13:18] LABS: Alkaline Phosphatase 427 U/L (46-116)
--- NOTE | 2019-09-25 14:29 | CT_ITS ---
PROCEDURE: CT ABDOMEN PELVIS WO/W CON CLINICAL INDICATION: ABD PAIN Diffuse abdominal pain COMPARISON: ABDPELW/O CT ABD PELVIS W/O CONTRAST from 07/07/2016 TECHNIQUE: IV Contrast: 75ML OPTIRAY 350 Oral Contrast 450ml Redicat Axial images obtained with sagittal and coronal reformats. All CT scans at the facility use one or more dose reduction, viz: automated exposure control, ma/kV adjustment per patient size (including targeted exams where dose is matched to indication, i.e. head), or iterative reconstruction technique. FINDINGS: LOWER THORAX: There is bilateral gynecomastia. Prior CABG. Artifact is present from the pacemaker wires. ABDOMEN & PELVIS: There has been interval development of multiple varying sized hypodense liver lesions suspicious for metastatic disease. The largest lesion is at the junction of the right left hepatic lobe anteriorly and measures 2.7 cm.. The spleen, adrenal glands, gallbladder, and kidneys have an unremarkable appearance. There is a 5.8 x 3.6 cm lobulated soft tissue mass involving the tail of the pancreas suspicious for neoplasm. A small peripancreatic lymph node is noted anteriorly at 2 cm. There is some mild calcification within the mass. There is a moderate amount of retained colonic feces throughout the colon. The cecum is somewhat distended with the appearance of wall thickening involving the posterior aspect of the ascending colon. This could be related to mixing of unopacified and opacified bowel contents. Colonoscopy may confirm this finding. There also questionable area of thickening involving the transverse colon along the inferior wall. There is a small amount of free fluid in the pelvis. No evidence of appendicitis or diverticulitis. No acute bony anomaly. IMPRESSION: 1. 5.7 x 3.6 cm mass involves the tail the pancreas suspicious for neoplasm with multiple liver lesions consistent with pancreatic carcinoma with hepatic metastasis. Small peripancreatic node is also noted at 2 cm.. 2. Moderate amount of retained colonic feces with questionable wall thickening of the ascending colon and cecal region posteriorly and also of the transverse colon. Neoplastic involvement is not excluded. Colonoscopy may be of further value. Dictated by: Timo Pablo MD 09/25/2019 17:38 Electronically signed by Timo Pablo MD in [place] 09/26/2019 05:18
== END ==
PROVIDERS: Visit Provider Internal Medicine Adolescent Medicine
DX: R10.84 Generalized abdominal pain (principal)
CPT/HCPCS: 36415; 74178; 80053; 82150; 83690; 85025; Q9967

== ENCOUNTER 2019-10-13 10:55 | Inpatient (IN) ==
--- NOTE | 2019-10-13 11:13 | Emergency Department Note ---
ED Disposition Clinical Impression: Hyperglycemia, Dehydration Altered mental status Qualifiers: Altered mental status type: disorientation Qualified Code(s): R41.0 - D isorientation, unspecified Pancreatic cancer Qualifiers: Pancreatic malignancy location: unspecified Qualified Code(s): C25.9 - Malignant neoplasm of pancreas, unspecified Ascites Qualifiers: Ascites type: other type Qualified Code(s): R18.8 - Other ascites Disposition: Admitted as Observation Condition on Discharge: Serious - Critical Care Critical Care Time: Yes Attestation: On , the high probability of a clinically significant, sudden or life threatening deterioration of the following system(s) required my full and direct attention, intervention and personal management. The time I documented below is in addition to time spent performing reported procedures but includes the following listed in this critical care notation. Total Critical Care Time: 45 Vital system(s) involved:: Metabolic Failure My critical care processes included: Assessment & monitoring of V/S, Initial and Re-exams, Data Review/Interpretation, Coordinating Care, Medication Orders and management, Documentation Medical Decision Making - Brandyn Inquiry Pt receiving controlled substance: Yes Brandyn was queried for this patient: No Reason not queried -: Emergent pt cond-no time Risks and benefits of using a controlled substance: were not discussed with pt by me Vital Signs: 10/13/19 11:07 10/13/19 11:28 10/13/19 11:30 Temperature 97.9 F 98.0 F Temperature Source Oral Oral Pulse Rate Pulse Rate [Right Radial] 83 80 83 Respiratory Rate 18 16 Blood Pressure Blood Pressure [Right Arm] 129/65 110/64 105/75 L Blood Pressure Mean [Right Arm] 86 79 85 Blood Pressure Source [Right Arm] Automatic Cuff Automatic Cuff Blood Pressure Position [Right Arm] Sitting Sitting 02 Sat by Pulse Oximetry 94 L 95 Oxygen Delivery Method Room Air Room Air 10/13/19 12:30 10/13/19 15:00 10/13/19 15:09 Temperature Temperature Source Pulse Rate Pulse Rate [Right Radial] 79 83 82 Respiratory Rate 20 Blood Pressure Blood Pressure [Right Arm] 130/60 117/58 L 117/58 L Blood Pressure Mean [Right Arm] 83 77 77 Blood Pressure Source [Right Arm] Automatic Cuff Blood Pressure Position [Right Arm] Supine 02 Sat by Pulse Oximetry 93 L 93 L 93 L Oxygen Delivery Method Room Air 10/13/19 15:16 10/13/19 15:48 Temperature 98.7 F Temperature Source Pulse Rate 82 Pulse Rate [Right Radial] 82 Respiratory Rate 18 Blood Pressure 117/58 L Blood Pressure [Right Arm] 117/58 L Blood Pressure Mean [Right Arm] 77 Blood Pressure Source [Right Arm] Blood Pressure Position [Right Arm] 02 Sat by Pulse Oximetry 92 L Oxygen Delivery Method - Lab Data Lab Results 10/13/19 11:28: VBG pH 7.34, VBG pCO2 45.1, VBG pO2 59.2 H, VBG HCO3 23.8, VBG Total CO2 25.2, VBG O2 Saturation 88.3 H, VBG Base Excess -1.9 10/13/19 11:29: WBC Cancelled, Corrected WBC Cancelled, RBC Cancelled, Hgb Ca ncelled, Hct Cancelled, MCV Cancelled, MCH Cancelled, MCHC Cancelled, RDW Cancelled, Plt Count Cancelled, MPV Cancelled, Neut % (Auto) Cancelled, Lymph % (Auto) Cancelled, Kane % (Auto) Cancelled, Eos % (Auto) Cancelled, Baso % (Auto) Cancelled, Neut # (Auto) Cancelled, Lymph # (Auto) Cancelled, Kane # (Auto) Cancelled, Eos # (Auto) Cancelled, Baso # (Auto) Cancelled 10/13/19 11:29: Sodium Cancelled, Potassium Cancelled, Chloride Cancelled, Carbon Dioxide Cancelled, Anion Gap Cancelled, BUN Cancelled, Creatinine Cancelled, Estimated Creat Clear Cancelled, Estimated GFR Cancelled, Est GFR ( Amer) Cancelled, Glucose Cancelled, Calcium Cancelled, Total Bilirubin Cancelled, AST Cancelled, ALT Cancelled, Alkaline Phosphatase Cancelled, Troponin I Cancelled, Total Protein Cancelled, Albumin Cancelled, Globulin Cancelled, Albumin/Globulin Ratio Cancelled, Amylase Cancelled, Lipase Cancelled, Acetone Level Cancelled 10/13/19 11:50: Random Glucose 715 H* 10/13/19 12:10: Amylase 5 L 10/13/19 12:10: Sodium 120 L, Potassium 5.3 H, Chloride 88 L, Carbon Dioxide 22, Anion Gap 15.3 H, BUN 57 H, Creatinine 1.45 H, Estimated Creat Clear 54, Estimated GFR 50 L, Est GFR ( Amer) 61, Glucose 682 H*, Calcium 7.8 L, Total Bilirubin 2.2 H, AST 97 H, ALT 49, Alkaline Phosphatase 989 H, Troponin I 0.20 H, Total Protein 5.4 L, Albumin 1.3 L, Globulin 4.1 H, Albumin/Globulin Ratio 0.3 L, Lipase 87, Acetone Level Small 10/13/19 12:41: Ammonia 28 10/13/19 13:05: Urine Color Yellow, Urine Appearance Clear, Urine pH 5.5, Ur Specific [place] 1.010, Urine Protein Negative, Urine Glucose (UA) 3+, Urine Ketones Negative, Urine Blood Negative, Urine Nitrate Negative, Urine Bilirubin Negative, Urine Urobilinogen 0.2, Ur Leukocyte Esterase Negative, Urine WBC 10- 20, Urine Bacteria 1+, Urine Mucus 1+ 10/13/19 14:00: WBC 9.6, RBC 3.62 L, Hgb 10.9 L, Hct 36.4 L, MCV 100.5 H, MCH 30.1, MCHC 30.0 L, RDW 16.9, Plt Count 250, MPV 9.8, Neut % (Auto) 87.4 H, Lymph % (Auto) 5.3 L, Kane % (Auto) 6.3, Eos % (Auto) 0.8, Baso % (Auto) 0.2, Neut # (Auto) 8.4 H, Lymph # (Auto) 0.5 L, Kane # (Auto) 0.6, Eos # (Auto) 0.1, Baso # (Auto) 0.0, Total Counted 100, Neutrophils % (Manual) 92 H, Lymphocytes % (Manual) 3 L, Monocytes % (Manual) 5, Platelet Estimate Normal, Anisocytosis 1+, Macrocytosis 1+ Result diagrams: 10/13/19 14:00 10/13/19 12:10 Orders (Tests/Meds): ED MEDICATIONS Generic Name Dose Route Start Last Admin Trade Name Lizzy PRN Reason Stop Dose Admin Aspirin 325 mg 10/14/19 09:00 Aspirin 325mg Tablet PO 11/13/19 08:59 DAILY [facility] Carvedilol 6.25 mg 10/13/19 21:00 Coreg 6.25mg Tablet PO 11/12/19 20:59 BID [facility] Clopidogrel Bisulfate 75 mg 10/14/19 09:00 Plavix 75mg Tablet PO 11/13/19 08:59 DAILY [facility] Gabapentin 200 mg 10/13/19 21:00 Neurontin 100mg Capsule PO 11/12/19 20:59 HS [facility] Sodium Chloride 1,000 mls @ 150 mls/hr 10/13/19 15:46 Sod Chlor 0.9% 1000ml Bag IV 11/12/19 15:45 .Q6H40M [facility] Insulin Human Lispro 0 unit 10/13/19 16:30 Humalog 100 Units/Ml 3ml Vial (Ssi) SQ 11/12/19 16:29 ACHS [facility] Protocol Lisinopril 5 mg 10/14/19 09:00 Zestril 5mg Tablet PO 11/13/19 08:59 DAILY [facility] Morphine Sulfate 4 mg 10/13/19 15:46 Morphine 2mg/Ml Syringe IV 11/12/19 15:45 Q4HP PRN Severe Pain Non-Formulary Medication 80 mg 10/13/19 21:00 Atorvastatin Calcium [Lipitor 80mg Tablet] PO 11/12/19 20:59 HS [facility] Non-Formulary Medication 1 each 10/13/19 16:30 Lipase/Protease/Amylase [Creon Dr 3,000 Units Capsule] PO 11/12/19 16:29 AC [facility] Non-Formulary Medication 1 tab 10/14/19 09:00 Paroxetine Hcl [Paroxetine Hcl] PO 11/13/19 08:59 DAILY [facility] Non-Formulary Medication 150 mg 10/13/19 15:46 Ranitidine Hcl [Ranitidine Hcl] PO BIDP PRN Acid Reflux Ondansetron HCl 4 mg 10/13/19 15:46 Zofran 4mg/2ml Vial IV 11/12/19 15:45 Q8HP PRN Nausea Sodium Chloride 10 ml 10/13/19 15:46 Saline Flush 10ml Syringe IV 11/12/19 15:45 NEEDED PRN Maintain IV Site Discontinued Medications Generic Name Dose Route Start Last Admin Trade Name Freq PRN Reason Stop Dose Admin Aspirin 324 mg 10/13/19 13:23 10/13/19 13:39 Aspirin 81mg Chewable Tablet PO 10/13/19 13:24 324 mg ONCE ONE Administration Insulin Human Regular 5 unit 10/13/19 14:06 10/13/19 15:05 Humulin R Insulin 100 Units/Ml 10ml Vial IVP 10/13/19 14:07 5 unit ONCE ONE Administration Ioversol 55 ml 10/13/19 14:52 10/13/19 14:53 Rad-Optiray 350 100ml Vial IV 10/13/19 14:53 55 ml ONCE ONE Administration Protocol Morphine Sulfate 4 mg 10/13/19 11:39 10/13/19 11:50 Morphine 4mg/Ml Syringe IV 10/13/19 11:40 4 mg ONCE ONE Administration Ondansetron HCl 4 mg 10/13/19 11:39 10/13/19 11:50 Zofran 4mg/2ml Vial IV 10/13/19 11:40 4 mg ONCE ONE Administration Sodium Chloride 1,000 ml 10/13/19 11:40 10/13/19 11:50 Sod Chlor 0.9% 1000ml Bag IV 10/13/19 11:41 1,000 ml BOLUS ONE Administration Sodium Chloride 10 ml 10/13/19 14:52 10/13/19 14:53 Rad-Saline Flush 10ml Syringe IV 10/13/19 14:53 10 ml ONCE ONE Administration ORDERS Category Date Time Status Troponin I Q3H Lab 10/13/19 16:00 Ordered Troponin I Q3H Lab 10/13/19 19:00 Ordered Urine Culture Stat Micro 10/13/19 13:05 Received Wound Culture and Gram Stain Routine Micro 10/13/19 11:25 Results - Radiology Data #1 Image(s): Chest Image Reviewed: Yes I reviewed the patient's radiology image, Yes I have reviewed radiologist's interpretation FINDINGS: This is a somewhat poor inspiration. There is mild generalized cardiomegaly and there are sternal wire sutures noted. There is a left-sided cardiac pacemaker with dual chamber electrodes both in good position. There is minimal left perihilar haziness suggesting atelectasis. Otherwise the left upper lung field and right lung field are clear. There is a coronary artery stent noted. There is no pulmonary congestion. IMPRESSION: Mild cardiomegaly with minimal left perihilar atelectasis Dictated by: Dr. Wilfrid Heltno MD 10/13/2019 12:[address] Wilfrid Helton MD in [place] 10/13/2019 12:58 - CT Data CT Scan: Head, Abdomen, Pelvis Time Received: 15:[address] Reviewed: Yes: I discussed the CT results w/the radiologist, I have viewed the radiologist's interpretation Findings Narrative: Head: FINDINGS: No midline shift, mass effect, intracranial hemorrhage, hydrocephalus, or extra-axial fluid collection is evident. There is a small old ischemic infarct right external capsule. There are mild periventricular hypodensities consistent with chronic ischemic white matter changes. The sylvian fissures and cortical sulci are prominent. The calvarium has an unremarkable appearance. No mastoid effusion. No sinus air-fluid level. IMPRESSION: Findings of moderate cortical atrophy and mild chronic white matter changes, no acute intracranial pathology noted Dictated by: Dr. Wilfrid Helton MD 10/13/2019 14:[address] Wilfrid Helton MD in [place] 10/13/2019 14:47 Abdomen/Pelvis: FINDINGS: LOWER THORAX: There is focal opacification abutting the pleura left perihilar region likely representing a focal pneumonic infiltrate. There is minimal atelectasis at the left base with a small left pleural effusion noted in the posterior gutter. ABDOMEN & PELVIS: Compared to the recent CT scan abdomen pelvis from 09/25/2019 there been distinct interval change. There is a massive amount of abdominal ascites with fluid surrounding the liver and extending into the right pericolic gutter and into the pelvis. Fluid surrounds the spleen as well. Again noted are the multiple somewhat poorly defined hypodense lesions of the liver worrisome for metastatic disease. There is moderate lobulation of the liver capsule and there is slight prominence of the caudate lobe of the liver and cirrhosis of the liver is a definite possibility. There are somewhat prominent collateral veins it stomach is moderately distended with ingested fluid. The gallbladder is partially contracted showing mildly thickened wall but there are no obvious stones seen. There is a hypodense mass seen in the tail of the pancreas and body tail junction measuring 4 point 0 x 3.3 cm. This is worrisome for pancreatic CA. The adrenal glands and kidneys are grossly normal. There is moderate scattered stool and gas seen throughout the colon. There is a large amount stool in the rectum. Urinary bladder is decompressed with a Vanessa catheter in place. There is prominent generalized anasarca of the subcutaneous tissues of the abdominal wall extending into the pelvis. There are mild degenerate changes lower thoracic and upper lumbar spine. IMPRESSION: Massive abdominal ascites none which was seen on the previous study associated with an apparent splenorenal collateral veins all findings suggesting cirrhosis. Hypodense mass distal body and tail the pancreas worrisome for pancreatic carcinoma and there are multiple hypodense liver lesions similar to the previous exam and suggestive of metastatic disease. Dictated by: Dr. Wilfrid Helton MD 10/13/2019 15:[address] iWlfrid Helton MD in [place] 10/13/2019 15:38 - Physician Consults Physician Consulted: Dr. Sebastian Time: 14:45 Reason -: Admission Comment/Response: Agrees to admit the patient to the hospital. We discussed the patient's clinical information, including history, exam, laboratory and radiology results and ED course. Per hospital procedure, I will write temporary bridge inpatient orders on the patient. Specific orders requested by the admitting physician: No antibiotics at this time. Normal saline at 150 cc/h. High-dose sliding scale insulin. Pain control. Medical Decision Narrative: EKG interpreted by Angel Fagan MD: Rhythm: sinus Rate: [place]: normal Ectopy: none Conduction: Right bundle branch block, chronic ST Segment Changes: none T Wave Changes: Inversion in 1 and aVL, unchanged Q Waves: none Prior electrocardiagrams reviewed. No change from prior tracings. General Adult HPI - General Stated complaint: pain and confusion Time Seen by Provider: 10/13/19 11:13 - History of Present Illness HPI narrative: Patient is a poor historian. History obtained from and friends. Recently diagnosed with pancreatic cancer on 10/02/2019, but not yet confirmed by biopsy. He has not yet seen an oncologist. He had been having problems with abdominal and back pain and constipation for about 3 weeks, diagnosed by CT scan. Attempted biopsy by Dr. Esteban by ERCP, unsuccessful. Family states Dr. Esteban has referred him to the hospital in [place] to have an ultrasound-guided biopsy. He has an appointment to see Dr. Jones here on . Family states his abdomen has become distended over the past couple of days. Complains of generalized abdominal pain. Noted to have bleeding from his umbilicus, which patient says has been present for couple of months. Over the past couple of days has become confused. Hallucinating, seeing people that are not there. They say that he knows they are not there but "he sees them". Very weak, unable to stand on his own. Excessive thirst. Family states he is a severe diabetic, the last time his blood sugar was checked was about 1 week ago. - Related Data Home Medications Medication Instructions Recorded Confirmed atorvastatin 80 mg tablet 80 mg PO HS 12/11/17 10/13/19 gabapentin 100 mg capsule 200 mg PO HS cap 07/24/18 10/13/19 clopidogrel 75 mg tablet 75 mg PO DAILY 01/07/19 10/13/19 insulin aspart prot-aspart 100 25 unit SQ BID 01/07/19 10/13/19 unit/mL (70-30) subcutaneous cartridge Aspirin [Aspirin 325mg Tab] 325 mg PO DAILY 03/22/19 10/13/19 Lisinopril [Lisinopril 5mg 5 mg PO DAILY 03/22/19 10/13/19 Tablet] raNITIdine HCl [Ranitidine HCl] 150 mg PO BIDP PRN 03/22/19 10/13/19 empagliflozin 25 mg-metformin ER 1 tab PO DAILY 09/03/19 10/13/19 1,000 mg tablet,extended release 24hr Furosemide [Furosemide 40MG tAB] 40 mg PO BID 10/04/19 10/13/19 Lipase/Protease/Amylase [Creon Dr 1 each PO AC 10/13/19 10/13/19 3,000 Units Capsule] Metformin HCl [Metformin 1000mg 1 tab PO BID 10/13/19 10/13/19 Tablets] PARoxetine HCl [Paroxetine HCl] 1 tab PO DAILY 10/13/19 10/13/19 carvediloL [Carvedilol 6.25mg Tab] 6.25 mg PO BID 10/13/19 10/13/19 Previous Rx's Medication Instructions Recorded nitroglycerin 0.4 mg sublingual 0.4 mg SUBLINGUAL Q5M PRN #30 tab 10/23/18 tablet Allergies Allergy/AdvReac Type Severity Reaction Status Date / Time No Known Allergies Allergy Verified 09/03/19 10:[address] [facility] History - Hepatitis A Screen Attestation statement:: This patient has been screened for Hepatitis A risk factors. I have reviewed the patient's past medical history: Yes Medical History: Reports:: Congestive Heart Failure, Coronary Artery Disease, Diabetes Mellitus Type 2, Gastroesophageal Reflux Disease(GERD), Hyperlipidemia, Hypertension, Internal Pacemaker, Myocardial Infarction Denies:: Cancer, Diabetes Mellitus Type 1, Lung Disease, MRSA, Seizures Other Medical History: Reports: Arthritis, Glaucoma Other Surgeries: Yes: CABG (December ), Cardiac Catheterization, Cardiac Surgery, Coronary Stent (6 stents in heart, 1 in leg ), Hernia Repair, Open Hear t Surgery, Pacemaker, Other (cadaver L foot, carotid.) Amputation: No Fractures: No Comment: open heart surgery 2018. cyst removed. stents right leg. Left Foot Graft Application - Social History Smoking Status: Current every day smoker Tobacco Type: cigarettes # Packs/Day (cigarettes): 1 #Yrs smoked (if former smoker): 40 Alcohol Intake: never Alcohol Intake Frequency:: other Substance Use Type: denies use Occupational Status: employed, disabled Housing: house Household Members: spouse Family Hx:: Coronary Artery Disease, Diabetes, Heart Attack, Hyperlipidemia, Hypertension Comment: Father - pacemaker - still alive ROS Obtained: Yes unobtainable due to mental status - Constitutional Constitutional: Reports poor appetite, Reports lethargy, Reports malaise, Reports weakness - Cardiovascular Cardiovascular: Denies chest pain - Respiratory Respiratory: No cough, No dyspnea - Gastrointestinal Gastrointestingal: Reports: abdominal pain, bloating, constipation (Last bowel movement about 1 week ago). Denies: vomiting - Genitourinary Male Genitourinary: Denies difficulty urinating - Neurologic Neurologic: Reports as per HPI Physical Exam - General General appearance: alert Comment: Mildly confused, generally weak - Head Head exam: atraumatic, normocephalic - Eye Eye exam: Present: normal appearance, EOMI - ENT ENT exam: Present: mucous membranes dry - Neck Neck exam: Present: normal inspection, trachea midline - Chest Chest inspection: Present: normal inspection, symmetric chest wall rise - Respiratory Respiratory exam: Present: normal lung sounds bilaterally. Absent: respiratory distress - Cardiovascular Cardiovascular exam: Present: regular rate, normal rhythm, normal heart sounds - Abdominal Exam Abdominal exam: Present: soft, distention, tenderness, normal bowel sounds. Absent: guarding, rebound, rigidity Abdominal tenderness: Present: diffuse, mild Comment: Bloody/purulent drainage from umbilicus. - Expanded Lower Extremity Exam Left Comment: There is a dry, callused ulcer left forefoot without drainage or erythema. - Neurological Exam Neurological exam: Present: CN II-XII intact. Absent: motor sensory deficit - Psychiatric Psychiatric exam: Present: flat affect - Skin Skin exam: Present: warm, dry
[2019-10-13 13:15] LABS: Alanine Aminotransferase 49 U/L (12-78); Albumin Level 1.3 gm/dL (3.4-5.0); Albumin/Globulin Ratio 0.3 (1.1-1.8); Alkaline Phosphatase 989 U/L (46-116); Anion Gap 15.3 mEq/L (5-15); Aspartate Amino Transferase 97 U/L (15-37); Bilirubin,Total 2.2 mg/dL (0.2-1.0); Blood Urea Nitrogen 57 mg/dL (7-18); Carbon Dioxide 22 mmol/L (21.0-32.0); Chloride 88 mmol/L (98-107); Globulin 4.1 gm/dl (1.3-3.2); Sodium 120 mmol/L (136-145); Total Protein,Serum 5.4 gm/dL (6.4-8.2)
[2019-10-13 13:18] LABS: Microscopic, Urine URINE MICROSCOPIC (MICROSCOPIC)
[2019-10-13 13:18] LABS: Glucose 682 mg/dL (74-106)
[2019-10-13 13:21] LABS: Appearance,Urine CLEAR (Clear); Blood, Urine Negative (Negative); Color,Urine YELLOW (Yellow); Glucose,Urine (UA) 3+ (Negative); Ketones,Urine Negative (Negative); Leukocyte Esterase,Urine Negative (Negative); PH,Urine 5.5 (5.0-8.5); Protein,Urine Negative (Negative); Urobilinogen,Urine 0.2 EU/dl (0.2)
[2019-10-13 13:23] LABS: Bilirubin,Urine Negative (Negative)
[2019-10-13 13:25] LABS: Calcium 7.8 mg/dL (8.5-10.1)
[2019-10-13 13:35] LABS: Acetone, Serum (Rapid) Small (None Detect)
[2019-10-13 13:46] LABS: Bacteria,Urine 1+ /lpf; Mucus,Urine 1+ /lpf
[2019-10-13 14:00] LABS: VBG Base Excess -1.9 mmol/L (-2.4-2.3); VBG HCO3 23.8 mmol/L (23-30); VBG Oxygen Saturation 88.3 % (50-70); VBG PCO2 45.1 mmol/L (35-51); VBG PH 7.34 mmol/L (7.31-7.41); VBG PO2 59.2 mmol/L (28-40); VBG Total CO2 25.2 mmol/L (23-27)
[2019-10-13 14:20] LABS: Basophils % 0.2 % (0.1-2.0); Eosinophils # 0.1 K/mm3 (0.0-0.4); Eosinophils % 0.8 % (0.1-12.0); Hematocrit 36.4 % (42.0-52.0); Hemoglobin 10.9 g/dL (14.1-18.0); Lymphocytes # 0.5 K/mm3 (0.7-4.5); Lymphocytes % 5.3 % (10-50); Mean Corpuscular Volume 100.5 fl (80-94); Mean Platelet Volume 9.8 fl (7.4-10.4); Monocytes # 0.6 K/mm3 (0.1-1.0); Monocytes % 6.3 % (1.7-9.3); Neutrophils # 8.4 K/mm3 (1.8-7.8); Neutrophils % 87.4 % (37.0-80.0); Platelet Count 250 K/mm3 (142-424); Red Blood Count 3.62 M/mm3 (4.60-6.20); Red Cell Distribution Width 16.9 % (11.5-17.5); White Blood Count 9.6 K/mm3 (4.8-10.8)
[2019-10-13 14:54] LABS: Lymphocytes % 3 % (10-50); Macrocytosis 1+; Monocytes % 5 % (2-9); Neutrophils % 92 % (42-76); Total Cells Counted 100
[2019-10-13 14:55] LABS: Anisocytosis 1+
--- NOTE | 2019-10-13 20:02 | History & Physical Report ---
*Admission Date: 10/13/19 *Chief complaint: Mental status changes, pancreas mass, new onset ascites *History of present illness: Very unfortunate 59-year-old white male with long medical history including severe history of uncontrolled diabetes, cardiomyopathy status post multiple intervention procedures and pacemaker/defibrillator placement with residual CHF and recently diagnosed pancreas mass, tail of the pancreas, 4 cm with evidence of liver metastases. He was referred to GI, ERCP was done but because of the location of the mass [place] was unsuccessful and patient has been referred to [facility] for scopic ultrasound and biopsy and that appointment is for tomorrow. Unfortunately, over the past couple of days patient has become increasingly lethargic, increasing pain is been noted in the abdominal swelling has been noted. Brought to the emergency department where he was noted to be confused. CT scan of head was unremarkable. Labs showed significant hyperglycemia without acidosis, hyponatremia and significant dehydration. CT scan revealed the presence of massive ascites, evidence of liver cirrhosis and the pancreatic mass and liver mets as previously noted. Admitted to hospital for further diagnostic testing, pain control and further evaluation. [facility] History I have reviewed the patient's past medical history: Yes Medical History: Reports:: Congestive Heart Failure, Coronary Artery Disease, Diabetes Mellitus Type 2, Gastroesophageal Reflux Disease(GERD), Hyperlipidemia, Hypertension, Internal Pacemaker, Myocardial Infarction Denies:: Cancer, Diabetes Mellitus Type 1, Lung Disease, MRSA, Seizures *Have you ever received a pneumonia vaccine?: No *Have you received a flu vaccine this season?: Yes Other Medical History: Reports: Arthritis, Glaucoma Other Surgeries: Yes: CABG (December ), Cardiac Catheterization, Cardiac Surgery, Coronary Stent (6 stents in heart, 1 in leg ), Hernia Repair, Open Heart Surgery, Pacemaker, Other (cadaver L foot, carotid.) Amputation: No Fractures: No - *Social History Educational Level: Completed GED/General Educational Development Smoking Status: Current some day smoker Tobacco Type: cigarettes # Packs/Day (cigarettes): 2 #Yrs smoked (if former smoker): 40 Alcohol Intake: never Alcohol Intake Frequency:: other Substance Use Type: denies use *Occupational Status:: employed, disabled Housing: house Household Members: spouse *Travel in the last 8 weeks: Outside the [facility] Family Hx:: Coronary Artery Disease, Diabetes, Heart Attack, Hyperlipidemia, Hypertension Review of Systems - Review of Systems Review of systems:: unable to obtain Patient reports back pain but is somewhat obtunded and unable to really give a detailed review of systems. - *Neurologic Reports weakness Meds Home Medications Medication Instructions Recorded Confirmed Type atorvastatin 80 mg tablet 80 mg PO HS 12/11/17 10/13/19 History gabapentin 100 mg capsule 200 mg PO HS cap 07/24/18 10/13/19 History nitroglycerin 0.4 mg sublingual 0.4 mg SUBLINGUAL Q5M PRN #30 tab 10/23/18 10/13/19 Rx tablet clopidogrel 75 mg tablet 75 mg PO DAILY 01/07/19 10/13/19 History insulin aspart prot-aspart 100 25 unit SQ BID 01/07/19 10/13/19 History unit/mL (70-30) subcutaneous cartridge Aspirin [Aspirin 325mg Tab] 325 mg PO DAILY 03/22/19 10/13/19 History Lisinopril [Lisinopril 5mg 5 mg PO DAILY 03/22/19 10/13/19 History Tablet] raNITIdine HCl [Ranitidine HCl] 150 mg PO BIDP PRN 03/22/19 10/13/19 History empagliflozin 25 mg-metformin ER 1 tab PO DAILY 09/03/19 10/13/19 History 1,000 mg tablet,extended release 24hr Furosemide [Furosemide 40MG tAB] 40 mg PO BID 10/04/19 10/13/19 History Lipase/Protease/Amylase [Kary Beadr 1 each PO AC 10/13/19 10/13/19 History 3,000 Units Capsule] Lipase/Protease/Amylase [Kary Beard 36,000 units PO QID 10/13/19 10/13/19 History 36,000 Units Capsule] Metformin HCl [Metformin 1000mg 1 tab PO BID 10/13/19 10/13/19 History Tablets] Methylnaltrexone Deeth [Relistor] 150 mg PO DAILY 10/13/19 10/13/19 History PARoxetine HCl [Paroxetine HCl] 1 tab PO DAILY 10/13/19 10/13/19 History carvediloL [Carvedilol 6.25mg Tab] 6.25 mg PO BID 10/13/19 10/13/19 History Allergies Allergy/AdvReac Type Severity Reaction Status Date / Time No Known Allergies Allergy Verified 09/03/19 10:06 Exam Vital signs and Labs for Last 24 Hours: Temp Pulse Resp BP Pulse Ox 98.2 F 86 18 111/50 L 93 L 10/13/19 16:00 10/13/19 16:00 10/13/19 16:00 10/13/19 16:00 10/13/19 17:22 Laboratory Results - last 24 hr 10/13/19 11:28: VBG pH 7.34, VBG pCO2 45.1, VBG pO2 59.2 H, VBG HCO3 23.8, VBG Total CO2 25.2, VBG O2 Saturation 88.3 H, VBG Base Excess -1.9 10/13/19 11:29: WBC Cancelled, Corrected WBC Cancelled, RBC Cancelled, Hgb Cancelled, Hct Cancelled, MCV Cancelled, MCH Cancelled, MCHC Cancelled, RDW Cancelled, Plt Count Cancelled, MPV Cancelled, Neut % (Auto) Cancelled, Lymph % (Auto) Cancelled, [place] % (Auto) Cancelled, Eos % (Auto) Cancelled, Baso % (Auto) Cancelled, Neut # (Auto) Cancelled, Lymph # (Auto) Cancelled, [place] # (Auto) Cancelled, Eos # (Auto) Cancelled, Baso # (Auto) Cancelled 10/13/19 11:29: Sodium Cancelled, Potassium Cancelled, Chloride Cancelled, Carbon Dioxide Cancelled, Anion Gap Cancelled, BUN Cancelled, Creatinine Cancelled, Estimated Creat Clear Cancelled, Estimated GFR Cancelled, Est GFR ( Amer) Cancelled, Glucose Cancelled, Calcium Cancelled, Total Bilirubin Cancelled, AST Cancelled, ALT Cancelled, Alkaline Phosphatase Cancelled, Troponin I Cancelled, Total Protein Cancelled, Albumin Cancelled, Globulin Cancelled, Albumin/Globulin Ratio Cancelled, Amylase Cancelled, Lipase Cancelled, Acetone Level Cancelled 10/13/19 11:50: Random Glucose 715 H* 10/13/19 12:10: Amylase 5 L 10/13/19 12:10: Sodium 120 L, Potassium 5.3 H, Chloride 88 L, Carbon Dioxide 22, Anion Gap 15.3 H, BUN 57 H, Creatinine 1.45 H, Estimated Creat Clear 54, Estimated GFR 50 L, Est GFR ( Amer) 61, Glucose 682 H*, Calcium 7.8 L, Total Bilirubin 2.2 H, AST 97 H, ALT 49, Alkaline Phosphatase 989 H, Troponin I 0.20 H, Total Protein 5.4 L, Albumin 1.3 L, Globulin 4.1 H, Albumin/Globulin Ratio 0.3 L, Lipase 87, Acetone Level Small 10/13/19 12:41: Ammonia 28 10/13/19 13:05: Urine Color Yellow, Urine Appearance Clear, Urine pH 5.5, Ur Specific [place] 1.010, Urine Protein Negative, Urine Glucose (UA) 3+, Urine Ketones Negative, Urine Blood Negative, Urine Nitrate Negative, Urine Bilirubin Negative, Urine Urobilinogen 0.2, Ur Leukocyte Esterase Negative, Urine WBC 10- 20, Urine Bacteria 1+, Urine Mucus 1+ 10/13/19 14:00: WBC 9.6, RBC 3.62 L, Hgb 10.9 L, Hct 36.4 L, MCV 100.5 H, MCH 30.1, MCHC 30.0 L, RDW 16.9, Plt Count 250, MPV 9.8, Neut % (Auto) 87.4 H, Lymph % (Auto) 5.3 L, [place] % (Auto) 6.3, Eos % (Auto) 0.8, Baso % (Auto) 0.2, Neut # (Auto) 8.4 H, Lymph # (Auto) 0.5 L, [place] # (Auto) 0.6, Eos # (Auto) 0.1, Baso # (Auto) 0.0, Total Counted 100, Neutrophils % (Manual) 92 H, Lymphocytes % (Manual) 3 L, Monocytes % (Manual) 5, Platelet Estimate Normal, Anisocytosis 1+, Macrocytosis 1+ 10/13/19 16:27: Troponin I 0.20 H 10/13/19 17:23: Random Glucose 657 H* I & O for Last 24 hours: Intake & Output 10/11/19 10/12/19 10/13/19 10/14/19 11:59 11:59 11:59 11:59 Intake Total 240 / 240 Output Total 275 / 275 Balance -35 / -35 Weight 150 lb 174 lb 9 oz Microbiology Reports for the Last 24 Hours: Microbiology 10/13/19 11:25 Abdomen Gram Stain - Final Narrative: Patient is sleeping, when awakened is somnolent, somewhat obtunded, oriented x2 only. Sallow skin changes, patient appears dehydrated and cachectic. Massive abdominal swelling noted with evidence of ascites. Lungs have poor air movement. Heart rate regular. Extremities with sallow skin changes, able to move extremities well but significant movement of the trunk because of severe back pain and abdominal pain. Oropharynx dry and clear. Assessment and Plan (1) Altered mental status Current visit: Yes Status: Acute Qualifiers: Altered mental status type: disorientation Qualified Code(s): R41.0 - Disorientation, unspecified Category: Medical Code(s): R41.82 - Altered mental status, unspecified Secondary to ascites, hyperglycemia and severe medical problems (2) Ascites Current visit: Yes Status: Acute Qualifiers: Ascites type: other type Qualified Code(s): R18.8 - Other ascites Category: Medical Code(s): R18.8 - Other ascites GI consultation for drainage (3) Pancreatic cancer Current visit: Yes Status: Acute Qualifiers: Pancreatic malignancy location: unspecified Qualified Code(s): C25.9 - Malignant neoplasm of pancreas, unspecified Category: Medical Code(s): C25.9 - Malignant neoplasm of pancreas, unspecified Significant progression of disease. Very olayinka conversation with about extremely poor prognosis. She will discuss whether or not she wishes to even pursue further work-up at this point. Increased pain medication tonight. Patient has previously elected DNR status. We will respect this. (4) Hyperglycemia Current visit: Yes Status: Acute Category: Medical Code(s): R73.9 - Hyperglycemia, unspecified IV fluids, IV and subcutaneous insulin. No evidence of acidosis at this point.
[2019-10-13 20:07] LABS: INR 1.03 (0.9-1.1); Prothrombin Time 10.7 seconds (9.4-11.8)
--- NOTE | 2019-10-13 20:12 | Electrocardiograph Report ---
APPROVED REPORT Exam: Resting ECG HR:78 bpm ECG Measurements Heart Rate 78 AXES CO 142 P 34 QRSd 130 QRS 15 QT 438 T110 QTc 499 <Conclusion> Normal sinus rhythm Right bundle branch block Septal infarct, age undetermined T wave abnormality, consider lateral ischemia Abnormal ECG Electronically signed by : Basil Sebastian, 10/13/2019 20:11:45
[2019-10-14 06:36] LABS: Basophils % 0.3 % (0.1-2.0); Eosinophils # 0.1 K/mm3 (0.0-0.4); Eosinophils % 1.1 % (0.1-12.0); Hematocrit 33.5 % (42.0-52.0); Hemoglobin 10.5 g/dL (14.1-18.0); Lymphocytes # 0.3 K/mm3 (0.7-4.5); Lymphocytes % 3.3 % (10-50); Mean Corpuscular HGB Conc 31.3 g/dL (31.8-35.4); Mean Platelet Volume 9.8 fl (7.4-10.4); Monocytes # 0.6 K/mm3 (0.1-1.0); Monocytes % 5.3 % (1.7-9.3); Neutrophils # 9.2 K/mm3 (1.8-7.8); Neutrophils % 89.9 % (37.0-80.0); Platelet Count 256 K/mm3 (142-424); Red Blood Count 3.45 M/mm3 (4.60-6.20); Red Cell Distribution Width 17.1 % (11.5-17.5); White Blood Count 10.3 K/mm3 (4.8-10.8)
[2019-10-14 06:41] LABS: Anion Gap 13.1 mEq/L (5-15); Calcium 7.7 mg/dL (8.5-10.1)
[2019-10-14 07:08] LABS: Lymphocytes % 5 % (10-50); Monocytes % 4 % (2-9); Neutrophils % 89 % (42-76); Total Cells Counted 100
[2019-10-14 07:09] LABS: Anisocytosis 1+; Macrocytosis 1+
--- NOTE | 2019-10-14 07:13 | Pharmacy Consult Notes ---
[facility] Pharmacy VTE Monitoring - Patient Demographics Admission date: 10/13/19 Report Date: 10/14/19 Time: 07:12 Allergies/Adverse Reactions: Patient Allergies No Known Allergies Allergy (Verified 09/03/19 10:06) Height: 1.7 m Weight: 83.546 kg Patient Problems: Current Active Problems Altered mental status (Acute) Hyperglycemia (Acute) Dehydration (Acute) Pancreatic cancer (Acute) Ascites (Acute) - VTE Risk Labs: VTE Related Lab Results Hgb 10.5 g/dL (14.1-18.0) L 10/14/19 06:14 Hct 33.5 % (42.0-52.0) L 10/14/19 06:14 Plt Count 256 K/mm3 (142-424) 10/14/19 06:14 PT 10.7 seconds (9.4-11.8) 10/13/19 12:41 INR 1.03 (0.9-1.1) 10/13/19 12:41 BUN 66 mg/dL (7-18) H 10/14/19 06:14 Creatinine 1.78 mg/dL (0.70-1.30) H D 10/14/19 06:14 Estimated Creat Clear 54 mL/min (50-200) 10/14/19 06:14 Was VTE Risk Assessment Performed: Yes VTE Score: 6 VTE Risk Level: Moderate Risk - Prophylaxis VTE Prophylaxis Ordered?: Yes Types of VTE Prophylaxis: TEDS Knee High Location of Applied Device: Bilateral Lower Extremeties - VTE Diagnosis Confirmed Treatment or plan recommended: Continue Current Treatment
--- NOTE | 2019-10-14 08:29 | Progress Note ---
Internal Medicine - PN: Subj *Date: 10/14/19 *Time: 08:25 Interval history: Patient overnight rested intermittently after morphine injections, but is in significant pain in his back when he rolls over. Has had minimal urine output. Vital signs of been stable. Glucose levels are somewhat improved with aggressive insulin treatment. Exam Vital signs and Labs for Last 24 Hours: Temp Pulse Resp BP Pulse Ox 97.7 F 85 18 96/51 L 96 10/14/19 08:00 10/14/19 08:00 10/14/19 08:00 10/14/19 08:00 10/14/19 08:00 Laboratory Results - last 24 hr 10/13/19 11:28: VBG pH 7.34, VBG pCO2 45.1, VBG pO2 59.2 H, VBG HCO3 23.8, VBG Total CO2 25.2, VBG O2 Saturation 88.3 H, VBG Base Excess -1.9 10/13/19 11:29: WBC Cancelled, Corrected WBC Cancelled, RBC Cancelled, Hgb Cancelled, Hct Cancelled, MCV Cancelled, MCH Cancelled, MCHC Cancelled, RDW Cancelled, Plt Count Cancelled, MPV Cancelled, Neut % (Auto) Cancelled, Lymph % (Auto) Cancelled, Bond % (Auto) Cancelled, Eos % (Auto) Cancelled, Baso % (Auto) Cancelled, Neut # (Auto) Cancelled, Lymph # (Auto) Cancelled, Bond # (Auto) Cancelled, Eos # (Auto) Cancelled, Baso # (Auto) Cancelled 10/13/19 11:29: Sodium Cancelled, Potassium Cancelled, Chloride Cancelled, Carbon Dioxide Cancelled, Anion Gap Cancelled, BUN Cancelled, Creatinine Cancelled, Estimated Creat Clear Cancelled, Estimated GFR Cancelled, Est GFR ( Amer) Cancelled, Glucose Cancelled, Calcium Cancelled, Total Bilirubin Cancelled, AST Cancelled, ALT Cancelled, Alkaline Phosphatase Cancelled, Troponin I Cancelled, Total Protein Cancelled, Albumin Cancelled, Globulin Cancelled, Albumin/Globulin Ratio Cancelled, Amylase Cancelled, Lipase Cancelled, Acetone Level Cancelled 10/13/19 11:50: Random Glucose 715 H* 10/13/19 12:10: Amylase 5 L 10/13/19 12:10: Sodium 120 L, Potassium 5.3 H, Chloride 88 L, Carbon Dioxide 22, Anion Gap 15.3 H, BUN 57 H, Creatinine 1.45 H, Estimated Creat Clear 54, Estimated GFR 50 L, Est GFR ( Amer) 61, Glucose 682 H*, Calcium 7.8 L, Total Bilirubin 2.2 H, AST 97 H, ALT 49, Alkaline Phosphatase 989 H, Troponin I 0.20 H, Total Protein 5.4 L, Albumin 1.3 L, Globulin 4.1 H, Albumin/Globulin Ratio 0.3 L, Lipase 87, Acetone Level Small 10/13/19 12:41: Ammonia 28 10/13/19 12:41: PT 10.7, INR 1.03 10/13/19 13:05: Urine Color Yellow, Urine Appearance Clear, Urine pH 5.5, Ur Specific [place] 1.010, Urine Protein Negative, Urine Glucose (UA) 3+, Urine Ketones Negative, Urine Blood Negative, Urine Nitrate Negative, Urine Bilirubin Negative, Urine Urobilinogen 0.2, Ur Leukocyte Esterase Negative, Urine WBC 10- 20, Urine Bacteria 1+, Urine Mucus 1+ 10/13/19 14:00: WBC 9.6, RBC 3.62 L, Hgb 10.9 L, Hct 36.4 L, MCV 100.5 H, MCH 30.1, MCHC 30.0 L, RDW 16.9, Plt Count 250, MPV 9.8, Neut % (Auto) 87.4 H, Lymph % (Auto) 5.3 L, Bond % (Auto) 6.3, Eos % (Auto) 0.8, Baso % (Auto) 0.2, Neut # (Auto) 8.4 H, Lymph # (Auto) 0.5 L, Bond # (Auto) 0.6, Eos # (Auto) 0.1, Baso # (Auto) 0.0, Total Counted 100, Neutrophils % (Manual) 92 H, Lymphocytes % (Manual) 3 L, Monocytes % (Manual) 5, Platelet Estimate Normal, Anisocytosis 1+, Macrocytosis 1+ 10/13/19 16:27: Troponin I 0.20 H 10/13/19 17:23: Random Glucose 657 H* 10/13/19 19:05: Troponin I 0.18 H 10/13/19 19:05: Random Glucose 676 H* 10/13/19 22:03: POC Glucose 505 H* 10/13/19 22:25: Random Glucose 468 H 10/14/19 05:26: POC Glucose 432 H* 10/14/19 06:14: WBC 10.3, RBC 3.45 L, Hgb 10.5 L, Hct 33.5 L, MCV 97.0 H, MCH 30.4, MCHC 31.3 L, RDW 17.1, Plt Count 256, MPV 9.8, Neut % (Auto) 89.9 H, Lymph % (Auto) 3.3 L, Bond % (Auto) 5.3, Eos % (Auto) 1.1, Baso % (Auto) 0.3, Neut # (Auto) 9.2 H, Lymph # (Auto) 0.3 L, Bond # (Auto) 0.6, Eos # (Auto) 0.1, Baso # (Auto) 0.0, Total Counted 100, Neutrophils % (Manual) 89 H, Band Neutrophils % 2.0, Lymphocytes % (Manual) 5 L, Monocytes % (Manual) 4, Platelet Estimate Normal, Poikilocytosis 1+, Anisocytosis 1+, Macrocytosis 1+, Acanthocytes (Spur) 1+ 10/14/19 06:14: Sodium 122 L, Potassium 5.1, Chloride 90 L, Carbon Dioxide 24, Anion Gap 13.1, BUN 66 H, Creatinine 1.78 H D, Estimated Creat Clear 54, Estimated GFR 40 L, Est GFR ( Amer) 48 L D, Glucose 414 H* D, Calcium 7.7 L I & O for Last 24 hours: Intake & Output 10/11/19 10/12/19 10/13/19 10/14/19 11:59 11:59 11:59 11:59 Intake Total 2968 / 2968 Output Total 375 / 375 Balance 2593 / 2593 Weight 150 lb 184 lb 3 oz Microbiology Reports for the Last 24 Hours: Microbiology 10/13/19 11:25 Abdomen Gram Stain - Final Narrative: Patient appears lethargic, is oriented x2. Lungs have fairly good air entry. Heart rate regular. Abdomen swollen with ascites. Peripheral pulses are present and he is well-perfused at this point. Assessment and Plan (1) Altered mental status Current visit: Yes Status: Acute Qualifiers: Altered mental status type: disorientation Qualified Code(s): R41.0 - Disorientation, unspecified Category: Medical Code(s): R41.82 - Altered mental status, unspecified (2) Ascites Current visit: Yes Status: Acute Qualifiers: Ascites type: malignant Qualified Code(s): R18.0 - Malignant ascites Category: Medical Code(s): R18.8 - Other ascites (3) Pancreatic cancer Current visit: Yes Status: Acute Qualifiers: Pancreatic malignancy location: unspecified Qualified Code(s): C25.9 - Malignant neoplasm of pancreas, unspecified Category: Medical Code(s): C25.9 - Malignant neoplasm of pancreas, unspecified (4) Hyperglycemia Current visit: Yes Status: Acute Category: Medical Code(s): R73.9 - Hyperglycemia, unspecified (5) Hyponatremia Current visit: Yes Status: Acute Category: Medical Code(s): E87.1 - Hypo- osmolality and hyponatremia (6) Anemia, chronic disease Current visit: Yes Status: Acute Category: Medical Code(s): D63.8 - Anemia in other chronic diseases classified elsewhere (7) Hyperkalemia Current visit: Yes Status: Acute Category: Medical Code(s): E87.5 - Hyperkalemia (8) Chronic systolic CHF (congestive heart failure) Current visit: Yes Status: Acute Category: Medical Code(s): I50.22 - Chronic systolic (congestive) heart failure - Assessment and plan all Dx Assessment and Plan for all problems:: As noted in my H&P, patient's condition is grave and most likely terminal. I will discuss with GI whether or not they think patient could even tolerate paracentesis given his low blood pressure. I discussed this with his . She and the patient have decided to pursue DNR status, and hospice intervention may be a reasonable possibility. Do not think patient would tolerate transfer to [facility] for biopsy procedure and I do not know that he would tolerate the biopsy procedure now given his significant metabolic derangements from this aggressive pancreatic cancer.
--- NOTE | 2019-10-14 14:12 | Procedure Note ---
[facility] Procedure Note Procedure Note:: S: Patient appears lethargic and slower to respond. He is alert and oriented x3. He is weak in appearance. O: Physical Examination: Gen.: The patient is slower to respond and appears older than stated age individual complains of pain but not writhing HEENT: Normocephalic/atraumatic extraocular movements are intact anicteric Neck: Supple no lymphadenopathy Chest: Clear to auscultation Cardiovascular: Regular rate and rhythm Abdomen: Protuberant abdomen with some normoactive bowel sounds, tenderness gen eralized, some sanguinous and purulent drainage from the umbilicus, some ascites present Extremities: 1+ edema Labs: Hemoglobin 10.5, hematocrit 33.5, white blood cell count 10.3, sodium 122, creatinine 1.78, glucose 276, albumin 1.3 A/P: 1. Pancreatic cancer in the tail of the pancreas with widely metastatic disease. His CA-19-9 was 2180 and his CEA level was 173. The patient is unable to sustain nutrition with significant hypoproteinemia/hypoalbuminemia. Some of this may be exacerbated by chronic renal insufficiency and his renal function has declined. His blood glucose is difficult to control at home. The patient does have a very poor prognosis and will not likely achieve improved quantity or quality of life with chemotherapeutic regimens because of the advancement of his disease but I would still like for him to see Dr. Jones on . I have spoken with the patient and his and would agree that EUS with pancreatic biopsies would not change the course of his disease and I will cancel this. At this point, I do feel that hospice will need to be involved with his care when he is discharged and thus I would like for them to see the patient while hospitalized. Directives have been started and hopefully will continue be addressed with the patient and family. We did discuss level of care and how aggressive to be. If the patient does want more aggressive care, would consider diagnostic testing of the ascitic fluid with culture, cell count and differential. I am not certain that is necessitated. I would provide pain management. He is getting edematous with IV fluids because of his hypoalbuminemia, renal function and nutritional status. I do feel that these directives will be processed by family and then determine level of care.
--- NOTE | 2019-10-14 21:38 | Death Note ---
Pronouncement Note - Date and Time of Date of : 10/14/19 Time of : 21:05 - PCOD Preliminary cause of : Pain (pancreatic cancer ) - Additional Data Confirmation of : no pulse Family: at bedside Attending/PCP notified?: Yes Attending physician: Basil Sebastian MD Was code activated?: No Autopsy requested?: No district medical examiner notified?: Yes Organ bank notified?: Yes Advance directives: Yes
== END 2019-10-15 03:18 | disposition expired | DRG 436 ==
LOC: ER 10:55 → 2ND 15:06
PROVIDERS: ADMIT Internal Medicine Adolescent Medicine; ATTEND Internal Medicine Adolescent Medicine
CPT/HCPCS: 36415; 70450; 71010; 71045; 74177; 80048; 80053; 81001; 82009; 82140; 82150; 82803; 82947; 82962; 83690; 84484; 85007; 85025; 85610; 87070; 87077; 87086; 87186; 87205; 93005; 94760; 94761; 96365; 96375; 99285; J2405; Q9967